=== PATIENT | female | born 1980 | race Caucasian/White ===

== ENCOUNTER 2020-11-06 11:33 | Outpatient (REF) | payer OTHER, SELFPAY ==
[2020-11-06 13:56] LABS: MANUAL DIFF FLAG NO
[2020-11-06 14:01] LABS: Basophils Absolute Auto 0.1 X10*3/uL (0.0-0.2); Basophils Percent Auto 0.5 % (0-2); Eosinophils Absolute Auto 0.2 X10*3/uL (0.0-0.4); Eosinophils Percent Auto 1.5 % (0-4); Hematocrit 42.4 % (37-47); Hemoglobin 13.8 g/dl (12.0-16.0); Imm Gran Abs Auto 0.03 X10*3/uL (0.00-0.03); Imm Gran Pct Auto 0.3 % (0.0-0.4); Lymphocytes Absolute Auto 2.8 X10*3/uL (1.2-4.9); Lymphocytes Percent Auto 28.7 % (20-40); Mean Corpuscular HGB Conc 32.5 g/dl (31.0-35.0); Mean Corpuscular Hemoglobin 29.6 pg (27.0-33.0); Mean Corpuscular Volume 90.8 fL (80-98); Mean Platelet Volume 9.6 fL (9.4-12.3); Monocytes Absolute Auto 0.7 X10*3/uL (0.1-1.2); Platelet Count 365 X10*3/uL (160-400); Red Blood Count 4.67 X10*6/uL (4.20-5.50); Red Cell Distribution Width 11.8 % (11.0-16.0); White Blood Count 9.7 X10*3/uL (4.8-10.8)
[2020-11-06 14:47] LABS: Alanine Aminotransferase 20 U/L (0-31); Albumin Level 4.9 g/dL (3.5-5.0); Alkaline Phosphatase 85 U/L (39-117); Anion Gap 15 (12-20); Aspartate Amino Transferase 15 U/L (5-31); Bilirubin Direct 0.3 mg/dL (0.0-0.5); Bilirubin Total 0.8 mg/dL (0.0-1.0); Blood Urea Nitrogen 17 mg/dL (9-16); Calcium 9.5 mg/dL (8.4-10.2); Carbon Dioxide 24 mmol/L (22-29); Chloride 105 mmol/L (96-108); Cholesterol 179 mg/dL; Estimated Glomerular Filt Rate > 60; Glucose Fasting 107 mg/dL (60-99); HDL Cholesterol 45 mg/dL; LDL Cholesterol Calculated 114 mg/dl; Potassium 4.5 mmol/l (3.3-5.1); Sodium 139 mmol/L (135-145); Total Protein 7.6 g/dL (6.5-8.0); Triglycerides 102 mg/dL
[2020-11-06 14:58] LABS: TSH reflex Free T4 2.12 mIU/mL (0.32-4.0)
== END 2020-11-06 11:34 | disposition home or self-care (01) ==
LOC: HO.HMGCLDS 11:33
PROVIDERS: PCP Internal Medicine; Visit Provider Internal Medicine
DX: G44.89 Other headache syndrome (principal); K21.9 Gastro-esophageal reflux disease without esophagitis; E78.9 Disorder of lipoprotein metabolism, unspecified
CPT/HCPCS: 36415; 80048; 80061; 80076; 84443; 85025

== ENCOUNTER 2020-12-06 14:50 | Outpatient (REF) | payer OTHER, SELFPAY ==
--- NOTE | 2020-12-06 14:52 | CT_ITS ---
EXAMINATION: CT HEAD WITHOUT CONTRAST CLINICAL INFORMATION: Tension headache. COMPARISON: None TECHNIQUE: Contiguous axial imaging was performed from the skull base to vertex without intravenous administration of contrast. This CT examination was performed using dose optimization techniques as appropriate, variously including the following: *Automated exposure control. *Adjustment of mA and/or kV according to patient size (this includes techniques or standardized protocols for targeted exams where dose is matched to indication/reason for exam; i.e. extremities or head). *Use of iterative reconstruction technique. DLP: 796 mGy-cm FINDINGS: There is no evidence of acute intracranial hemorrhage or territorial infarction. There is a focal hypodensity in subcortical white matter of right frontal lobe on axial image 21/2. There is no mass effect or midline shift seen. Gjpi-dy-gqsgj matter differentiation is well preserved. No extra-axial fluid collections are identified. The ventricles are normal in size. There is no abnormal attenuation within the brain parenchyma. The osseous structures and soft tissues are normal. The mastoid air cells and visualized portions of the paranasal sinuses are well aerated. CT/CT head/brain wo con IMPRESSION: No acute intracranial process seen. Subtle hypodensity in the subcortical white matter right frontal lobe on a couple of slices. Whether this represents a small infarct or underlying lesion is questioned. Recommend CT with contrast or MRI brain with and without contrast.
== END 2020-12-06 14:51 | disposition home or self-care (01) ==
LOC: HO.CT 14:50
PROVIDERS: PCP Internal Medicine; Visit Provider Psychiatry & Neurology Neurology
DX: G44.209 Tension-type headache, unspecified, not intractable (principal)
CPT/HCPCS: 70450

== ENCOUNTER → 2020-12-28 09:55 | Outpatient (BNVA) | payer OTHER, SELFPAY | PROVIDERS: PCP Internal Medicine; Visit Provider Internal Medicine Gastroenterology ==

== ENCOUNTER 2021-01-15 10:53 | Outpatient (REF) | payer OTHER, SELFPAY ==
[2021-01-15 12:17] LABS: Alanine Aminotransferase 16 U/L (0-31); Alkaline Phosphatase 107 U/L (39-117); Aspartate Amino Transferase 15 U/L (5-31); Bilirubin Direct 0.3 mg/dL (0.0-0.5); Bilirubin Total 0.6 mg/dL (0.0-1.0); Cholesterol 170 mg/dL; HDL Cholesterol 35 mg/dL; LDL Cholesterol Calculated 110 mg/dl; Total Protein 7.6 g/dL (6.5-8.0); Triglycerides 128 mg/dL
[2021-01-15 12:19] LABS: Blood Urea Nitrogen 8 mg/dL (9-16); Estimated Glomerular Filt Rate > 60
== END 2021-01-15 10:54 | disposition home or self-care (01) ==
LOC: HO.LAB 10:53
PROVIDERS: Absent Provider Psychiatry & Neurology Neurology; PCP Internal Medicine; Visit Provider Internal Medicine
DX: Z00.01 Encounter for general adult medical examination with abnormal findings (principal); E78.9 Disorder of lipoprotein metabolism, unspecified; G93.9 Disorder of brain, unspecified
CPT/HCPCS: 36415; 80061; 80076; 82565; 84520

== ENCOUNTER 2021-01-22 10:40 | Outpatient (REF) | payer OTHER, SELFPAY ==
--- NOTE | ~2021-01-22 | MR_ITS ---
EXAMINATION: MR BRAIN WITHOUT AND WITH CONTRAST CLINICAL INFORMATION: Assessment of right frontal lesion seen on prior CT imaging. COMPARISON: Head CT from 12/06/2020. TECHNIQUE: Multiplanar, multisequence imaging of the brain was performed before and after the intravenous administration of 8.5 mL of Gadavist. FINDINGS: No diffusion abnormalities are identified to suggest an acute or subacute infarct. The ventricles are normal in size. No mass effect or midline shift is seen. Nonspecific mild scattered white matter signal changes noted in the frontal lobes. No extra-axial fluid collections are seen. The brainstem and cerebellum are normal. On postcontrast imaging, there is no abnormal parenchymal or leptomeningeal enhancement. The gradient refocused acquisition is normal. The craniovertebral junction, marrow signal, and midline structures are normal. The major intracranial flow voids at the level of the [place] are preserved. The dural venous sinus flow voids are maintained. The paranasal sinuses are well aerated. There is a dependent right mastoid effusion. The left mastoid air cells are aerated. MR/MR head/brain wo/w con IMPRESSION: Nonspecific mild bifrontal white matter signal changes. No acute process. No abnormal enhancement. Incidental mild to moderate dependent right mastoid effusion.
== END 2021-01-22 10:41 | disposition home or self-care (01) ==
LOC: HO.MRI 10:40
PROVIDERS: Visit Provider Psychiatry & Neurology Neurology
DX: G93.9 Disorder of brain, unspecified (principal)
CPT/HCPCS: 70553; A9585

== ENCOUNTER → 2021-02-05 09:55 | Outpatient (BNVA) | payer OTHER, SELFPAY | PROVIDERS: PCP Internal Medicine; Visit Provider Internal Medicine Gastroenterology ==

== ENCOUNTER → 2021-04-02 09:45 | Outpatient (BNVA) | payer OTHER, SELFPAY | PROVIDERS: PCP Internal Medicine; Visit Provider Internal Medicine Gastroenterology ==

== ENCOUNTER → 2021-10-08 10:23 | Outpatient (BNVA) | payer OTHER, SELFPAY | PROVIDERS: PCP Internal Medicine; Referring Provider Internal Medicine; Visit Provider Internal Medicine Gastroenterology | DX: K59.01 Slow transit constipation (principal); K21.9 Gastro-esophageal reflux disease without esophagitis; R07.89 Other chest pain; R68.81 Early satiety | CPT/HCPCS: 99212 ==

== ENCOUNTER 2021-12-26 09:25 | Outpatient (REF) | payer OTHER, SELFPAY ==
[2021-12-26 12:04] LABS: Alanine Aminotransferase 29 U/L (0-31); Albumin Level 4.2 g/dL (3.5-5.0); Alkaline Phosphatase 76 U/L (39-117); Aspartate Amino Transferase 18 U/L (5-31); Bilirubin Direct < 0.2 mg/dL (0.0-0.5); Bilirubin Total 0.4 mg/dL (0.0-1.0); Cholesterol 176 mg/dL; HDL Cholesterol 38 mg/dL; LDL Cholesterol Calculated 113 mg/dl; Total Protein 6.6 g/dL (6.5-8.0); Triglycerides 126 mg/dL
== END 2021-12-26 09:26 | disposition home or self-care (01) ==
LOC: HO.HMGCLDS 09:25
PROVIDERS: PCP Internal Medicine; Visit Provider Internal Medicine
DX: E78.9 Disorder of lipoprotein metabolism, unspecified (principal)
CPT/HCPCS: 36415; 80061; 80076

== ENCOUNTER → 2022-03-28 10:10 | Outpatient (BNVA) | payer OTHER, SELFPAY | PROVIDERS: PCP Internal Medicine; Referring Provider Internal Medicine; Visit Provider Internal Medicine Gastroenterology | DX: K59.01 Slow transit constipation (principal); K21.9 Gastro-esophageal reflux disease without esophagitis; R68.81 Early satiety; R07.89 Other chest pain | CPT/HCPCS: 99212 ==

== ENCOUNTER 2022-09-02 11:46 | Outpatient (REF) | payer OTHER, SELFPAY ==
[2022-09-02 13:48] LABS: MANUAL DIFF FLAG NO
[2022-09-02 13:53] LABS: Basophils Absolute Auto 0.1 X10*3/uL (0.0-0.2); Basophils Percent Auto 1.5 % (0-2); Eosinophils Absolute Auto 0.3 X10*3/uL (0.0-0.4); Eosinophils Percent Auto 4.2 % (0-4); Hemoglobin 13.8 g/dl (12.0-16.0); Imm Gran Abs Auto 0.01 X10*3/uL (0.00-0.03); Imm Gran Pct Auto 0.1 % (0.0-0.4); Lymphocytes Absolute Auto 2.6 X10*3/uL (1.2-4.9); Lymphocytes Percent Auto 38.3 % (20-40); Mean Corpuscular HGB Conc 33.7 g/dl (31.0-35.0); Mean Corpuscular Hemoglobin 30.2 pg (27.0-33.0); Mean Corpuscular Volume 89.7 fL (80.0-98.0); Mean Platelet Volume 9.4 fL (9.4-12.3); Monocytes Absolute Auto 0.5 X10*3/uL (0.1-1.2); Neutrophils Absolute Auto 3.2 x10*3/uL (2.0-8.3); Neutrophils Percent Auto 47.9 % (45-73); Platelet Count 353 X10*3/uL (160-400); Red Blood Count 4.57 X10*6/uL (4.20-5.50); Red Cell Distribution Width 11.7 % (11.0-16.0); White Blood Count 6.7 X10*3/uL (4.8-10.8)
[2022-09-02 14:09] LABS: Alanine Aminotransferase 21 U/L (0-31); Albumin Level 4.5 g/dL (3.5-5.0); Alkaline Phosphatase 92 U/L (39-117); Anion Gap 14 (12-20); Aspartate Amino Transferase 17 U/L (5-31); Bilirubin Total 0.4 mg/dL (0.0-1.0); Blood Urea Nitrogen 12 mg/dL (9-16); Calcium 9.5 mg/dL (8.4-10.2); Carbon Dioxide 24 mmol/L (22-29); Chloride 107 mmol/L (96-108); Cholesterol 161 mg/dL; Estimated Glomerular Filt Rate > 60; Glucose Fasting 103 mg/dL (60-99); HDL Cholesterol 35 mg/dL; LDL Cholesterol Calculated 111 mg/dl; Sodium 141 mmol/L (135-145); Total Protein 6.9 g/dL (6.5-8.0); Triglycerides 75 mg/dL
[2022-09-02 14:29] LABS: TSH reflex Free T4 1.33 uIU/mL (0.32-4.0)
[2022-09-03 21:22] LABS: Follicle Stimulating Hormone 8.1 mIU/mL
[2022-09-04 23:01] LABS: TS Negative Control Passed; TS Panel A 0; TS Panel B 0; TS Positive Control Passed; TSpotTB Negative (Negative)
== END 2022-09-02 11:47 | disposition home or self-care (01) ==
LOC: HO.HMGCLDS 11:46
PROVIDERS: PCP Internal Medicine; Visit Provider Internal Medicine
DX: Z11.1 Encounter for screening for respiratory tuberculosis (principal); E78.9 Disorder of lipoprotein metabolism, unspecified; G44.89 Other headache syndrome; K21.9 Gastro-esophageal reflux disease without esophagitis; K59.01 Slow transit constipation; N93.8 Other specified abnormal uterine and vaginal bleeding; R61 Generalized hyperhidrosis
CPT/HCPCS: 36415; 80053; 80061; 83001; 83002; 84443; 85025; 86481

== ENCOUNTER 2023-03-19 12:57 | Outpatient (REF) | payer OTHER, SELFPAY ==
[2023-03-19 13:11] LABS: MANUAL DIFF FLAG NO
[2023-03-19 13:35] LABS: Basophils Absolute Auto 0.1 X10*3/uL (0.0-0.2); Basophils Percent Auto 0.7 % (0-2); Eosinophils Absolute Auto 0.1 X10*3/uL (0.0-0.4); Eosinophils Percent Auto 1.4 % (0-4); Hematocrit 39.8 % (37.0-47.0); Hemoglobin 13.2 g/dl (12.0-16.0); Imm Gran Abs Auto 0.03 X10*3/uL (0.00-0.03); Imm Gran Pct Auto 0.3 % (0.0-0.4); Lymphocytes Absolute Auto 2.9 X10*3/uL (1.2-4.9); Lymphocytes Percent Auto 29.2 % (20-40); Mean Corpuscular HGB Conc 33.2 g/dl (31.0-35.0); Mean Corpuscular Hemoglobin 30.3 pg (27.0-33.0); Mean Corpuscular Volume 91.5 fL (80.0-98.0); Mean Platelet Volume 9.2 fL (9.4-12.3); Monocytes Absolute Auto 0.7 X10*3/uL (0.1-1.2); Monocytes Percent Auto 6.6 % (2-11); Neutrophils Absolute Auto 6.1 x10*3/uL (2.0-8.3); Neutrophils Percent Auto 61.8 % (45-73); Platelet Count 379 X10*3/uL (160-400); Red Blood Count 4.35 X10*6/uL (4.20-5.50); Red Cell Distribution Width 11.9 % (11.0-16.0); White Blood Count 9.9 X10*3/uL (4.8-10.8)
[2023-03-19 13:50] LABS: Estimated Average Glucose 103 mg/dL; Hemoglobin A1c % 5.2 %
[2023-03-19 14:23] LABS: Alanine Aminotransferase 13 U/L (0-31); Albumin Level 4.4 g/dL (3.5-5.0); Alkaline Phosphatase 86 U/L (39-117); Anion Gap 11 (12-20); Aspartate Amino Transferase 14 U/L (5-31); Bilirubin Total 0.7 mg/dL (0.0-1.0); Blood Urea Nitrogen 10 mg/dL (9-16); Calcium 9.7 mg/dL (8.4-10.2); Carbon Dioxide 26 mmol/L (22-29); Chloride 107 mmol/L (96-108); Cholesterol 163 mg/dL; Estimated Glomerular Filt Rate > 60; Glucose Fasting 92 mg/dL (60-99); HDL Cholesterol 30 mg/dL; LDL Cholesterol Calculated 114 mg/dl; Potassium 4.4 mmol/L (3.3-5.1); Sodium 140 mmol/L (135-145); Total Protein 6.5 g/dL (6.5-8.0); Triglycerides 96 mg/dL
== END 2023-03-19 12:58 | disposition home or self-care (01) ==
LOC: HO.LAB 12:57
PROVIDERS: PCP Internal Medicine; Visit Provider Internal Medicine Gastroenterology
DX: E78.9 Disorder of lipoprotein metabolism, unspecified (principal); K21.9 Gastro-esophageal reflux disease without esophagitis; G44.89 Other headache syndrome; R73.01 Impaired fasting glucose
CPT/HCPCS: 36415; 80053; 80061; 83036; 85025

== ENCOUNTER → 2023-03-25 09:52 | Outpatient (BNVA) | payer OTHER, SELFPAY | PROVIDERS: PCP Internal Medicine; Visit Provider Internal Medicine Gastroenterology | DX: K21.9 Gastro-esophageal reflux disease without esophagitis (principal); K59.01 Slow transit constipation; E78.9 Disorder of lipoprotein metabolism, unspecified; R07.89 Other chest pain; R68.81 Early satiety | CPT/HCPCS: 99212 ==

== ENCOUNTER 2023-04-21 08:41 | Outpatient (REF) | payer OTHER, SELFPAY ==
[2023-04-21 11:53] LABS: Alanine Aminotransferase 17 U/L (0-31); Albumin Level 4.6 g/dL (3.5-5.0); Alkaline Phosphatase 88 U/L (39-117); Anion Gap 14 (12-20); Aspartate Amino Transferase 16 U/L (5-31); Bilirubin Total 0.6 mg/dL (0.0-1.0); Blood Urea Nitrogen 9 mg/dL (9-16); Calcium 9.9 mg/dL (8.4-10.2); Carbon Dioxide 23 mmol/L (22-29); Chloride 108 mmol/L (96-108); Cholesterol 150 mg/dL; Estimated Glomerular Filt Rate > 60; Glucose Fasting 98 mg/dL (60-99); HDL Cholesterol 33 mg/dL; LDL Cholesterol Calculated 102 mg/dl; Potassium 3.8 mmol/L (3.3-5.1); Sodium 141 mmol/L (135-145); Total Protein 7.2 g/dL (6.5-8.0); Triglycerides 78 mg/dL
== END 2023-04-21 08:42 | disposition home or self-care (01) ==
LOC: HO.HMGCLDS 08:41
PROVIDERS: PCP Internal Medicine; Visit Provider Internal Medicine
DX: K21.9 Gastro-esophageal reflux disease without esophagitis (principal); G44.89 Other headache syndrome; E78.9 Disorder of lipoprotein metabolism, unspecified
CPT/HCPCS: 36415; 80053; 80061

== ENCOUNTER 2023-09-10 12:33 | Outpatient (AMB) | payer OTHER, SELFPAY ==
[2023-09-10 12:43] VITALS: BP 126/84; PULSE 79; O2SAT 98; BMI 30.2
--- NOTE | 2023-09-10 12:43 | MHC.PC.OV ---
Vital Signs 09/10/23 12:43 Height 5 ft 3 in Weight 170 lb 4 oz BMI 30.2 BP 126/84 Blood Pressure Location Rt brachial Position Sitting Pulse 79 Pulse Source Pulse Oximeter Pulse Oximetry (%) 98 Oxygen Delivery Method Room Air Intake Visit Reasons: 5 MON FUP+ NEEDS PHQ9+ THRIVE Allergies No Known Allergies Allergy (Verified 09/10/23 12:44) Medication List - Last Reconciled 09/10/23 by Merry Mabry MD amitriptyline 25 mg PO DAILY famotidine 20 mg PO BEDTIME linaclotide (Linzess) 145 mcg PO QAM lisinopril 5 mg PO DAILY 90 days pantoprazole 40 mg PO BID 90 days propranolol 60 mg PO BID simvastatin 40 mg PO DAILY 90 days Tobacco use date assessed: 09/10/23 Dental Screening Dental Screen Date: 09/10/23 Did you have a dental visit in the last 12 months?: Yes Did you have a dental problem in the last 6 months where you did not have access to dental care?: No Was dental information given to patient?: Patient has dentist HPI 5 MON FUP+ NEEDS PHQ9+ THRIVE HPI Details Patient is a 43-year-old female came in today for her regular follow-up appointment Patient had labs in April, reviewed again new set of lab order placed to be done in October Headache syndrome:? Stable with amitriptyline 50 mg and propranolol Lipid disorder:? Continue simvastatin and diet-controlled Her BMI is 30.2 patient need to lose weight she is obese GERD is stable patient is seeing Gastroenterology patient is on pantoprazole 40 mg. Constipation is stable as well she is taking Linzess Bp stable with Lisinopril 5 mg, no side effect Taking otc melotanin as needed as sleeping aid f/u 4 M [facility] Medical History Headache syndrome Chronic GERD Lipid disorder Surgical History History of esophagogastroduodenoscopy (EGD) Hx of colonoscopy History of section Family History Father No problems noted. Mother No problems noted. Maternal Grandmother Unknown family medical history Maternal Grandfather Unknown family medical history Paternal Grandmother Unknown family medical history Son No problems noted. Social History Household Members: Spouse and Children Housing: House Alcohol intake: never Patient Tobacco Use Status: Current everyday Tobacco user e-Cigarette/Vaping Use: Never Used service: No Current occupational status: unemployed Cognitive needs: No Hearing needs: No Vision needs: No Questionnaire PHQ-9 Over the last 2 weeks, how often have you been bothered by any of the following problems? 1. Little interest or pleasure in doing things: not at all 2. Feeling down, depressed, or hopeless: not at all 3. Trouble falling or staying asleep, or sleeping too much: not at all 4. Feeling tired or having little energy: not at all 5. Poor appetite or overeating: not at all 6. Feeling bad about yourself - or that you are a failure or have let yourself or your family down: not at all 7. Trouble concentrating on things, such as reading the newspaper or watching television: not at all 8. Moving or speaking so slowly that other people could have noticed. Or the opposite - being so fidgety or restless that you have been moving around a lot more than usual: not at all 9. Thoughts that you would be better off or of hurting yourself in some way: not at all Total score: 0 Depression Screening Interpretation: Negative Depression Screening Done: Yes 16987 - PHQ-9 Billing: Yes Source: Developed by Drs. Nii Morales, Chanel Bowens, Lasha Good and colleagues, with an educational tucker from [employer]. Thrive Questionnaire Date Thrive assessed: 08/27/22 SEBLE-7 AMB Questionnaire SEBLE-7 Date SEBLE - 7 assessed: 08/27/22 Source: Developed by Drs. Nii Morales, Chanel Bowens, Lasha Good and colleagues, with an educational tucker from [employer]. Review of Systems Const Denies chills and Denies fever(s) ENT Denies epistaxis and Denies nasal discharge Card Denies chest pain Resp Denies chest congestion, Denies cough and Denies hemoptysis GI Denies diarrhea and Denies nausea Skin/Breast Denies rash Neuro Reports no additional complaints Psych Reports no additional complaints Endo Reports no additional complaints Physical exam (Primary Care) Vital Signs: Last Vital Signs Pulse 79 09/10/23 12:43 BP 126/84 09/10/23 12:43 Pulse Ox 98 09/10/23 12:43 Oxygen Delivery Method Room Air 09/10/23 12:43 BMI result Body Mass Index 30.2 Tobacco/Smoking Status: Tobacco use Status Tobacco use date assessed 09/10/23 09/10/23 12:46 Patient Tobacco Use Status Current everyday Tobacco 09/10/23 12:46 e-Cigarette/Vaping Use Never Used 09/10/23 12:46 Depression Screening Interpretation: Negative Thrive Assessment: Date of Thrive Assessment Date Thrive assessed 08/27/22 09/10/23 12:46 Const General: cooperative, comfortable and no acute distress Orientation/consciousness: patient oriented x3 HENMT Head: Yes normocephalic Eyes General: appearance normal, both eyes and all related structures Neck Neck: Yes supple Resp Effort & Inspection: normal respiratory effort, no cough and no stridor Cardio Rhythm: regular rhythm Heart sounds: S1 normal heart sound present and S2 normal heart sound present Skin General skin exam: turgor normal Neuro General: patient oriented x3, tone normal and moves all extremities Extrem Right lower extremity: no edema Left lower extremity: no edema Assessment and Plan Assessment & Plan (1) Lipid disorder: Code(s): E78.9 - Disorder of lipoprotein metabolism, unspecified (2) Chronic GERD: Code(s): K21.9 - Gastro-esophageal reflux disease without esophagitis (3) Headache syndrome: Code(s): G44.89 - Other headache syndrome (4) Hypertension, essential: Code(s): I10 - Essential (primary) hypertension (5) Impaired fasting blood sugar: Code(s): R73.01 - Impaired fasting glucose (6) Difficulty sleeping: Code(s): G47.9 - Sleep disorder, unspecified (7) Obesity due to excess calories: Code(s): E66.09 - Other obesity due to excess calories Qualifiers: Obesity classification: adult class 1 (BMI 30 - 34.9) Serious obesity comorbidity presence: with serious comorbidity Body mass index: BMI 30.0-30.9 Qualified Code(s): E66.09 - Other obesity due to excess calories; Z68.30 - Body mass index [BMI] 30.0-30.9, adult Plan: If your BMI is between 25 and 29.9, you are overweight. If your BMI is 30 or greater, you are obese. ___ Being obese is a problem, because it increases the risks of many different health problems. It can also make it hard for you to move, breathe, and do other things that people who are at a healthy weight can do easily. Plus, being obese can be hard emotionally. ___ What are the health risks of being obese? Being obese increases a persons risk of developing many health problems. Here are just a few examples: __ Diabetes High blood pressure, High cholesterol, Heart disease (including heart attacks) Stroke, Sleep apnea (a disorder in which you stop breathing for short periods while asleep) Asthma, Cancer __ Does being obese shorten a persons life? Yes. Studies show that people who are obese younger than people who are a healthy weight. They also show that the risk of goes up the heavier a person is. The degree of increased risk depends on how long the person has been obese, and on what other medical problems he or she has. , Reduce your carbohydrate intake and choose carbs that are complex. Remember as a general rule of thumb, avoid highly processed foods. If it's white and soft, it's probably been stripped of its nutritional value. Change white bread to whole wheat bread, white rice to brown rice, white potatoes to sweet potatoes, white pasta to whole wheat pasta. Monitor portion sizes too: protein should be no bigger than your fist. Limit your red meat intake to only once or twice a wk. Eat more white meat but make sure to avoid creamy sauces etc. Broiling, baking or grilling is best. Increase dark, green leafy vegetables and fruits. Plan Patient is a 43-year-old female came in today for her regular follow-up appointment Patient had labs in April, reviewed again new set of lab order placed to be done in October Headache syndrome:? Stable with amitriptyline 50 mg and propranolol Lipid disorder:? Continue simvastatin and diet-controlled Her BMI is 30.2 patient need to lose weight she is obese GERD is stable patient is seeing Gastroenterology patient is on pantoprazole 40 mg. Constipation is stable as well she is taking Linzess Bp stable with Lisinopril 5 mg, no side effect Taking otc melotanin as needed as sleeping aid f/u 4 M Orders: Orders Complete Blood Count Auto Diff Today E78.9 - Disorder of lipoprotein metabolism, unspecified, G44.89 - Other headache syndrome, G47.9 - Sleep disorder, unspecified, I10 - Essential (primary) hypertension, K21.9 - Gastro-esophageal reflux disease without esophagitis, R73.01 - Impaired fasting glucose Comprehensive Met. Panel Today E78.9 - Disorder of lipoprotein metabolism, unspecified, G44.89 - Other headache syndrome, G47.9 - Sleep disorder, unspecified, I10 - Essential (primary) hypertension, K21.9 - Gastro-esophageal reflux disease without esophagitis, R73.01 - Impaired fasting glucose Hemoglobin A1c Today R73.01 - Impaired fasting glucose Medications: New amitriptyline 25 mg PO DAILY 90 tabs 0RF Changed From propranolol 60 mg PO BID To propranolol 60 mg PO BID 90 days 180 tabs 0RF Refilled lisinopril 5 mg PO DAILY 90 days 90 tabs 1RF simvastatin 40 mg PO DAILY 90 days 90 tabs 1RF E78.9 - Disorder of lipoprotein metabolism, unspecified Coding Level of Care Code Est Pt Level 4 (76306) Diagnoses Lipid disorder E78.9 Chronic GERD K21.9 Headache syndrome G44.89 Hypertension, essential I10 Impaired fasting blood sugar R73.01 Difficulty sleeping G47.9 Class 1 obesity due to excess calories with serious comorbidity and body mass index (BMI) of 30.0 to 30.9 in adult E66.09; Z68.30 Obesity classification: adult class 1 (BMI 30 - 34.9) Serious obesity comorbidity presence: with serious comorbidity Body mass index: BMI 30.0-30.9
== END 2023-09-10 13:46 | disposition home or self-care (01) ==
PROVIDERS: PCP Internal Medicine; Visit Provider Internal Medicine
DX: E78.9 Disorder of lipoprotein metabolism, unspecified (principal); K21.9 Gastro-esophageal reflux disease without esophagitis; G44.89 Other headache syndrome; I10 Essential (primary) hypertension; R73.01 Impaired fasting glucose; G47.9 Sleep disorder, unspecified; E66.09 Other obesity due to excess calories; Z68.30 Body mass index [BMI] 30.0-30.9, adult
CPT/HCPCS: 99214

== ENCOUNTER 2023-10-30 11:38 | Outpatient (AMB) | payer OTHER, SELFPAY ==
[2023-10-30 11:45] VITALS: BP 118/69; PULSE 87; BMI 29.2
--- NOTE | 2023-10-30 11:45 | MHC.OFFVIS ---
Intake Vital Signs 10/30/23 11:45 Height 5 ft 3 in Weight 165 lb BMI 29.2 BP 118/69 Blood Pressure Location Lt brachial Position Sitting Pulse 87 Intake Visit Reasons: 4 month follow up Intake Note: Patient 4 month follow up for constipation and chronic GERD. Patient denies any GI issues. 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 CHRONIC ILLNESSES: Gerd, headache sydrome, VERTIGO, DYSPEPSIA, OVER WEIGHT, LOW VITAMIN B12 LEVEL, LIPID DISORDER ? LABS IN [facility]: 01/07/19 normal CBC, Chem panel and LFTs ?IMAGING STUDIES:?07/2014 barium swallow was performed for evaluation of chest pain and was normal. ?ENDOSCOPIC STUDIES; 08/28 EGD SHOWED: ? LARYNX: Changes suggestive of LPRD ? ESOPHAGUS: Normal ? STOMACH: Gastritis. ? DUODENUM: Normal ? Plan: ? Await pathology results ? Continue present medications (Omeprazole at 20 mg PO once daily) ? Patient has an appointment on 09/15/19 in the GI Clinic with Yony Talley M.D ? BIOPSIES SHOWED: ? A. Small bowel, biopsies: Small bowel mucosa with no significant ? histopathology; no villous abnormality identified; no increase in ? intraepithelial lymphocytes. ? B. Stomach, biopsies: Mild chronic, inactive gastritis; no Helicobacter pylori organisms seen. ? C. Esophagus proximal, biopsy: Squamous epithelium within normal limits. ? TODAY'S VISIT Patient 4 month follow up for constipation and chronic GERD. Patient denies any GI issues. Intentional weight loss of 35 lb over the past 3 years. Pt states she is feeling better. Occasional heartburn once in a while - not related to specific foods - once every 1-2 months Contiptipation is better and has a BM every day or 2nd day PAST VISIT: Pt is accompanied by her 5 year old daughter, Annette Denies chest pains, just burning sensation Most of the time this week - mostly at night. Taking Pantoprazole 40 mg twice a day Takes Linzess 145 mcg and has a BM daily to every 2nd day. Denies change in her diet. GERD and chest pains well controlled with medications. Has a BM daily to every other day. Notes intermittent episodes of chest pain - not often - can last 30 min to 1 hr. Constipation is much better , she is using the bathroom more frequently and GERD symptoms are better, too . Can have intermittent hard stools Having a BM every day with good evacuation. Denies any other GI symptoms. She is planning to go to [place] to spend the holidays with her in-laws. Patient called on #[phone]) Chest pains have improved since she started using medications. Intermittent chest pain radiating to the back - this week was bad. Constipation is a little bit better. Having a BM every 2 days - still has hard stools with straining ? Doing OK - Had some heartburn and not too bad. ? Complains of intermittent shortness of breath ? Feels full in the morning even before she has eaten - feels she has air inside. ? Noted some shortness of breath - attributes to weight gain for 25 lbs over the past 3 months. ? Taking Pantoprazole once daily. ? Has constipation for 6-7 months and was prescribed some medications - does not appear to be working. ? ? ? She was having a BM once a week ? Now every 2-3 days with passage of hard stools with . ? Can have heartburn symptoms every 2-3 weeks. ? Quitted smoking 3 months ago. ? Can can feel full in the stomach even if she had not eaten anything. ? Continues to have symptoms of heartburn though less than in the past. ? Takes Pantoprazole every morning and can have breakthrough symptoms three times a week. ? Can have chest pain sometimes. ? Takes longer to go to sleep due to heartburn. ? Keeps HOB elevated at night with pillows. ? Has dinner at 7 pm and goes to bed after 10 or 10;30 pm. ? Continues to have a Fb sensation in the throat.. ? Symptoms occur during the day and mostly at night. ? Unable to identify any precipitating foods. ? Has 3 cups of coffee daily ? Smokes 6-7 cigg/day x 19 yrs and is trying to cut down. Quitted on her own for a few months and then resumed smoking again. ? Denies regurgitation or dysphagia or chronic cough or hoarseness. ? Also has pain in the lower chest radiationg up to the throat and back. ? Chest pain is not as frequent as the heartburn and is not related to food or activity. ? Notes palpitations and denies nausea, vomiting, sweating or shortness of breath PFSH Medical History Headache syndrome Chronic GERD Lipid disorder Surgical History History of esophagogastroduodenoscopy (EGD) Hx of colonoscopy History of section Family History Father No problems noted. Mother No problems noted. Maternal Grandmother Unknown family medical history Maternal Grandfather Unknown family medical history Paternal Grandmother Unknown family medical history Son No problems noted. Social History Household Members: Spouse and Children Housing: House Alcohol intake: never Patient Tobacco Use Status: Current everyday Tobacco user e-Cigarette/Vaping Use: Never Used service: No Current occupational status: unemployed Cognitive needs: No Hearing needs: No Vision needs: No Review of Systems Const All systems reviewed & are unremarkable except as noted in HPI and below Physical Exam Vital Signs: Last Vital Signs Pulse 87 10/30/23 11:45 BP 118/69 10/30/23 11:45 BMI result Body Mass Index 29.2 Const General: healthy appearing and no acute distress Nutritional Appearance: overweight Orientation/consciousness: patient oriented x3 Limitations: no limitations HEENT Head: Yes normal to inspection Ears: hearing grossly normal bilaterally Eyes Sclerae: sclerae normal Pupils: Equal, round and reactive pupils present Neck Neck: Yes normal visual inspection Chest Chest palpation & inspection: normal inspection of the chest Resp Effort & Inspection: normal respiratory effort Auscultation: clear to auscultation bilaterally Cardio Palpation: normal PMI Rate: regular rate Rhythm: regular rhythm Heart sounds: S1 normal heart sound present, S2 normal heart sound present and no murmurs GI Palpation (GI): Soft to palpation, nontender and No hepatosplenomegaly present Auscultation: normal bowel sounds Rectal Exam - Female: deferred Skin General skin exam: no rashes or lesions noted Neuro General: patient oriented x3, gait normal and moves all extremities Cranial nerves: Yes Equal, round and reactive pupils present Psych Appearance: grossly normal Mental Status: mental status grossly normal Assessment & Plan Assessment & Plan (1) Early satiety: Code(s): R68.81 - Early satiety (2) Chest pain, atypical: Code(s): R07.89 - Other chest pain (3) Constipation by delayed colonic transit: Code(s): K59.01 - Slow transit constipation (4) Chronic GERD: Code(s): K21.9 - Gastro-esophageal reflux disease without esophagitis Plan 43 year-old female with headache syndrome, vertigo, dyspepsia, overweight, low vitamin B12 level, lipid disorder with symptoms of heartburn and atypical chest likely associated with esophageal spasm. FB sensation in the throat likely related to LPRD. Patient quit smoking 2 yrs ago and has noted significant improvement of her symptoms with pantoprazole with intermittent breakthrough symptoms once every 2-3 weeks. Patient has gained 25 lb over the past 9 months since she is house bound due to COVID-19 pandemic.? She was able to loose some weight and has regained again She notes symptoms of abdominal fullness with and without eating which she attributes to weight gain. Pt was advised to increase pantoprazole to 40 mg twice daily for GERD during her previous visit and notes partial improvement in symptoms. Pt was started on Linzess for constipation and notes improvement in symptoms and has a BM daily with intermittent hard stools Patient was offered further evaluation with gastric emptying study. She would like to work on losing weight and she will contact my office if symptoms persist to schedule a gastric emptying test. 03/25/23 Pt complains of persisting burning - worse at night. She was advised to keep head of her bed elevated at night and take famotidine 20 mg at bedtime. She will be scheduled for an upper endoscopy with Torres (Off PPI) If symptoms resolve, she may elect to cancel the EGD. 10/30/23 Intentional weight loss of 35 lb over the past 3 years. Pt states she is feeling better. Occasional heartburn once in a while - not related to specific foods - once every 1-2 months Contiptipation is better and has a BM every day or 2nd day Follow-up appointment in 6 months Medications: Refilled pantoprazole 40 mg PO BID 90 days 180 tabs 2RF Discontinued famotidine Discontinued Reason: Patient Completed Course 20 mg PO BEDTIME 90 tabs 1RF K21.9 - Gastro-esophageal reflux disease without esophagitis Coding Level of Care Code Est Pt Level 3 (31367) Diagnoses Early satiety R68.81 Chest pain, atypical R07.89 Constipation by delayed colonic transit K59.01 Chronic GERD K21.9 Time Spent (min) 15
== END 2023-10-30 12:04 | disposition home or self-care (01) ==
LOC: HO.HGI 11:38
PROVIDERS: PCP Internal Medicine; Visit Provider Internal Medicine Gastroenterology
DX: R68.81 Early satiety (principal); R07.89 Other chest pain; K59.01 Slow transit constipation; K21.9 Gastro-esophageal reflux disease without esophagitis
CPT/HCPCS: 99213

== ENCOUNTER → 2023-10-30 11:38 | Outpatient (BNVA) | payer OTHER, SELFPAY | PROVIDERS: PCP Internal Medicine; Visit Provider Internal Medicine Gastroenterology | DX: K21.9 Gastro-esophageal reflux disease without esophagitis (principal); K59.01 Slow transit constipation; R68.81 Early satiety; R07.89 Other chest pain | CPT/HCPCS: 99212 ==

== ENCOUNTER 2023-12-03 09:51 | Outpatient (REF) | payer OTHER, SELFPAY ==
[2023-12-03 13:44] LABS: MANUAL DIFF FLAG NO
[2023-12-03 14:03] LABS: Basophils Absolute Auto 0.1 X10*3/uL (0.0-0.2); Basophils Percent Auto 0.9 % (0-2); Eosinophils Absolute Auto 0.3 X10*3/uL (0.0-0.4); Eosinophils Percent Auto 3.6 % (0-4); Hematocrit 41.1 % (37.0-47.0); Hemoglobin 13.8 g/dl (12.0-16.0); Imm Gran Abs Auto 0.01 X10*3/uL (0.00-0.03); Imm Gran Pct Auto 0.1 % (0.0-0.4); Lymphocytes Absolute Auto 3.2 X10*3/uL (1.2-4.9); Lymphocytes Percent Auto 41.2 % (20-40); Mean Corpuscular HGB Conc 33.6 g/dl (31.0-35.0); Mean Corpuscular Hemoglobin 30.3 pg (27.0-33.0); Mean Corpuscular Volume 90.3 fL (80.0-98.0); Mean Platelet Volume 9.1 fL (9.4-12.3); Monocytes Absolute Auto 0.6 X10*3/uL (0.1-1.2); Monocytes Percent Auto 7.9 % (2-11); Neutrophils Absolute Auto 3.7 x10*3/uL (2.0-8.3); Neutrophils Percent Auto 46.3 % (45-73); Platelet Count 387 X10*3/uL (160-400); Red Blood Count 4.55 X10*6/uL (4.20-5.50); Red Cell Distribution Width 11.7 % (11.0-16.0); White Blood Count 7.9 X10*3/uL (4.8-10.8)
[2023-12-03 14:05] LABS: Estimated Average Glucose 97 mg/dL
[2023-12-03 14:25] LABS: Alanine Aminotransferase 15 U/L (0-31); Albumin Level 4.5 g/dL (3.5-5.0); Alkaline Phosphatase 75 U/L (39-117); Anion Gap 13 (12-20); Aspartate Amino Transferase 16 U/L (5-31); Bilirubin Total 0.6 mg/dL (0.0-1.0); Blood Urea Nitrogen 10 mg/dL (9-16); Calcium 9.6 mg/dL (8.4-10.2); Carbon Dioxide 23 mmol/L (22-29); Chloride 106 mmol/L (96-108); Estimated Glomerular Filt Rate > 60; Glucose Random 104 mg/dL (60-115); Potassium 3.5 mmol/L (3.3-5.1); Sodium 138 mmol/L (135-145); Total Protein 7.3 g/dL (6.5-8.0)
== END 2023-12-03 09:52 | disposition home or self-care (01) ==
LOC: HO.HMGCLDS 09:51
PROVIDERS: PCP Internal Medicine; Visit Provider Internal Medicine
DX: E78.9 Disorder of lipoprotein metabolism, unspecified (principal); K21.9 Gastro-esophageal reflux disease without esophagitis; G44.89 Other headache syndrome; R73.01 Impaired fasting glucose; G47.9 Sleep disorder, unspecified; I10 Essential (primary) hypertension
CPT/HCPCS: 36415; 80053; 83036; 85025

== ENCOUNTER 2023-12-12 12:31 | Outpatient (AMB) | payer OTHER, SELFPAY ==
[2023-12-12 12:33] VITALS: BP 126/78; PULSE 81; O2SAT 98; BMI 30.9
--- NOTE | 2023-12-12 12:33 | MHC.PC.OV ---
Vital Signs 12/12/23 12:33 Height 5 ft 3 in Weight 174 lb 6 oz BMI 30.9 BP 126/78 Blood Pressure Location Lt brachial Position Sitting Pulse 81 Pulse Source Pulse Oximeter Pulse Oximetry (%) 98 Oxygen Delivery Method Room Air Intake Visit Reasons: 3 Month follow up Allergies No Known Allergies Allergy (Verified 12/12/23 12:33) Medication List - Last Reconciled 12/12/23 by Merry Mabry MD linaclotide (Linzess) 145 mcg PO QAM lisinopril 5 mg PO DAILY 90 days pantoprazole 40 mg PO BID 90 days propranolol 60 mg PO BID 90 days simvastatin 40 mg PO DAILY 90 days Tobacco use date assessed: 12/12/23 Dental Screening Dental Screen Date: 12/12/23 Did you have a dental visit in the last 12 months?: Yes Did you have a dental problem in the last 6 months where you did not have access to dental care?: No Was dental information given to patient?: Patient has dentist HPI 3 Month follow up HPI Details Patient is a 43-year-old female came in today for her regular follow-up appointment Labs done recently reviewed with the patient Headache syndrome:? Stable propranolol, she is no longer taking amitriptyline Lipid disorder:? Continue simvastatin and diet-controlled Her BMI is 30.9 patient need to lose weight GERD is stable patient is seeing Gastroenterology patient is on pantoprazole 40 mg. Constipation is stable as well she is taking Linzess Bp stable with Lisinopril 5 mg, no side effect Taking otc melotanin as needed as sleeping aid f/u 4 M PFS Medical History Headache syndrome Chronic GERD Lipid disorder Surgical History History of esophagogastroduodenoscopy (EGD) Hx of colonoscopy History of section Family History Father No problems noted. Mother No problems noted. Maternal Grandmother Unknown family medical history Maternal Grandfather Unknown family medical history Paternal Grandmother Unknown family medical history Son No problems noted. Social History Household Members: Spouse and Children Housing: House Alcohol intake: never Patient Tobacco Use Status: Current everyday Tobacco user e-Cigarette/Vaping Use: Never Used service: No Current occupational status: unemployed Cognitive needs: No Hearing needs: No Vision needs: No Questionnaire Thrive Questionnaire Date Thrive assessed: 08/27/22 SEBLE-7 AMB Questionnaire SEBLE-7 Date SEBLE - 7 assessed: 08/27/22 Source: Developed by Drs. Nii Morales, Chanel Bowens, Lasha Good and colleagues, with an educational tucker from [employer]. Review of Systems Const Denies chills and Denies fever(s) ENT Denies epistaxis and Denies nasal discharge Card Denies chest pain Resp Denies chest congestion, Denies cough and Denies hemoptysis GI Denies diarrhea and Denies nausea Skin/Breast Denies rash Neuro Reports no additional complaints Psych Reports no additional complaints Endo Reports no additional complaints Physical exam (Primary Care) Vital Signs: Last Vital Signs Pulse 81 12/12/23 12:33 BP 126/78 12/12/23 12:33 Pulse Ox 98 12/12/23 12:33 Oxygen Delivery Method Room Air 12/12/23 12:33 BMI result Body Mass Index 30.9 Tobacco/Smoking Status: Tobacco use Status Tobacco use date assessed 12/12/23 12/12/23 12:35 Patient Tobacco Use Status Current everyday Tobacco 12/12/23 12:35 e-Cigarette/Vaping Use Never Used 12/12/23 12:35 Thrive Assessment: Date of Thrive Assessment Date Thrive assessed 08/27/22 12/12/23 12:35 Const General: cooperative, comfortable and no acute distress Orientation/consciousness: patient oriented x3 HENMT Head: Yes normocephalic Eyes General: appearance normal, both eyes and all related structures Neck Neck: Yes supple Resp Effort & Inspection: normal respiratory effort, no cough and no stridor Cardio Rhythm: regular rhythm Heart sounds: S1 normal heart sound present and S2 normal heart sound present Skin General skin exam: turgor normal Neuro General: patient oriented x3, tone normal and moves all extremities Extrem Right lower extremity: no edema Left lower extremity: no edema Assessment and Plan Assessment & Plan (1) Hypertension, essential: Code(s): I10 - Essential (primary) hypertension (2) Lipid disorder: Code(s): E78.9 - Disorder of lipoprotein metabolism, unspecified (3) Chronic GERD: Code(s): K21.9 - Gastro-esophageal reflux disease without esophagitis (4) Headache syndrome: Code(s): G44.89 - Other headache syndrome (5) Impaired fasting blood sugar: Code(s): R73.01 - Impaired fasting glucose (6) Obesity due to excess calories: Code(s): E66.09 - Other obesity due to excess calories Qualifiers: Body mass index: BMI 30.0-30.9 Obesity classification: adult class 1 (BMI 30 - 34.9) Serious obesity comorbidity presence: with serious comorbidity Qualified Code(s): E66.09 - Other obesity due to excess calories; Z68.30 - Body mass index [BMI] 30.0-30.9, adult Plan Patient is a 43-year-old female came in today for her regular follow-up appointment Labs done recently reviewed with the patient Headache syndrome:? Stable propranolol, she is no longer taking amitriptyline Lipid disorder:? Continue simvastatin and diet-controlled Her BMI is 30.9 patient need to lose weight GERD is stable patient is seeing Gastroenterology patient is on pantoprazole 40 mg. Constipation is stable as well she is taking Linzess Bp stable with Lisinopril 5 mg, no side effect Taking otc melotanin as needed as sleeping aid f/u 4 M Medications: Discontinued amitriptyline Discontinued Reason: Doctor's Order 25 mg PO DAILY 90 tabs 0RF Coding Level of Care Code Est Pt Level 4 (92782) Diagnoses Hypertension, essential I10 Lipid disorder E78.9 Chronic GERD K21.9 Headache syndrome G44.89 Impaired fasting blood sugar R73.01 Class 1 obesity due to excess calories with serious comorbidity and body mass index (BMI) of 30.0 to 30.9 in adult E66.09; Z68.30 Body mass index: BMI 30.0-30.9 Obesity classification: adult class 1 (BMI 30 - 34.9) Serious obesity comorbidity presence: with serious comorbidity
== END 2023-12-12 16:17 | disposition home or self-care (01) ==
PROVIDERS: PCP Internal Medicine; Visit Provider Internal Medicine
DX: I10 Essential (primary) hypertension (principal); E78.9 Disorder of lipoprotein metabolism, unspecified; K21.9 Gastro-esophageal reflux disease without esophagitis; G44.89 Other headache syndrome; R73.01 Impaired fasting glucose; E66.09 Other obesity due to excess calories; Z68.30 Body mass index [BMI] 30.0-30.9, adult
CPT/HCPCS: 99214

== ENCOUNTER 2024-04-09 11:16 | Outpatient (AMB) | payer OTHER, SELFPAY ==
[2024-04-09 11:20] VITALS: BP 126/88; PULSE 83; O2SAT 98; BMI 30.9
--- NOTE | 2024-04-09 11:20 | A.OFFPC_ITS ---
Vital Signs 04/09/24 11:20 Height 5 ft 3 in Weight 174 lb 4 oz BMI 30.9 BP 126/88 Blood Pressure Location Rt brachial Position Sitting Pulse 83 Pulse Source Pulse Oximeter Pulse Oximetry (%) 98 Oxygen Delivery Method Room Air Intake Visit Reasons: Annual PE- NEEDS PHQ9/THRIVE Allergies No Known Allergies Allergy (Verified 04/09/24 11:23) Medication List - Last Reconciled 04/09/24 by Merry Mabry MD linaclotide (Linzess) 145 mcg PO QAM lisinopril 5 mg PO DAILY 90 days pantoprazole 40 mg PO BID 90 days propranolol 60 mg PO BID 90 days simvastatin 40 mg PO DAILY 90 days Tobacco use date assessed: 04/09/24 Dental Screening Dental Screen Date: 04/09/24 Did you have a dental visit in the last 12 months?: Yes Did you have a dental problem in the last 6 months where you did not have access to dental care?: No Was dental information given to patient?: Patient has dentist HPI Annual PE- NEEDS PHQ9/THRIVE HPI Details Patient is a 43-year-old female came in today for physical examination Patient has lipid disorder and hypertension She is taking simvastatin 40 mg lisinopril 5 mg, tolerating medication Blood pressure is well-controlled Patient is seeing [facility] Breast exam mammogram and Pap smear through them Lab order placed to be done today Patient is complaining of feeling itchy at night which does not happen every night but 3 or 4 times a month Patient says that she does not know what happens but she is not able to sleep I have sent hydroxyzine 25 mg to be taken as needed only. BMI is elevated need to lose weight Follow-up 6 months physical exam 1 year [facility] Medical History Headache syndrome Chronic GERD Lipid disorder Surgical History History of esophagogastroduodenoscopy (EGD) Hx of colonoscopy History of section Family History Father No problems noted. Mother No problems noted. Maternal Grandmother Unknown family medical history Maternal Grandfather Unknown family medical history Paternal Grandmother Unknown family medical history Son No problems noted. Social History Household Members: Spouse and Children Housing: House Alcohol intake: never Patient Tobacco Use Status: Current everyday Tobacco user e-Cigarette/Vaping Use: Never Used service: No Current occupational status: unemployed Cognitive needs: No Hearing needs: No Vision needs: No Questionnaire PHQ-9 Over the last 2 weeks, how often have you been bothered by any of the following problems? 1. Little interest or pleasure in doing things: not at all 2. Feeling down, depressed, or hopeless: not at all 3. Trouble falling or staying asleep, or sleeping too much: not at all 4. Feeling tired or having little energy: not at all 5. Poor appetite or overeating: not at all 6. Feeling bad about yourself - or that you are a failure or have let yourself or your family down: not at all 7. Trouble concentrating on things, such as reading the newspaper or watching television: not at all 8. Moving or speaking so slowly that other people could have noticed. Or the opposite - being so fidgety or restless that you have been moving around a lot more than usual: not at all 9. Thoughts that you would be better off or of hurting yourself in some way: not at all Total score: 0 Depression Screening Interpretation: Negative Depression Screening Done: Yes 63847 - PHQ-9 Billing: Yes Source: Developed by Drs. Nii Morales, Chanel Bowens, Lasha Good and colleagues, with an educational tucker from [employer]. Thrive Questionnaire Date Thrive assessed: 04/09/24 I am a: Patient What is your living situation today?: I have a steady place to live Within the past 12 months, did the food you bought not last and you didn't have the money to get more?: Never true Within the past 12 months, did you worry whether your food would run out before you got money to buy more?: Never true Do you have trouble paying for medicines?: No Do you have trouble getting transportation to medical appointments?: No Do you have trouble paying your heating and electricity bill?: No Do you have trouble taking care of your child, family member or friend?: No Do you have trouble with day-to-day activities such as bathing, preparing meals, shopping, managing finances, etc.?: No Are you currently unemployed and looking for a job?: Yes Are you interested in more education?: No Please select the resources that you would like help with: None Currently or been in a relationship where the following occur: no concerns reported THRIVE Score: 0 AUDIT C Alcohol Use Questionnaire (AUDIT-C) 1. How often do you have a drink containing alcohol?: Never 3. How often do you have six or more drinks on one occasion?: Never Total Score: 0 Score Reviewed/Action Taken: Yes SEBLE-7 AMB Questionnaire SEBLE-7 Date SEBLE - 7 assessed: 04/09/24 Feeling nervous, anxious, or on edge: 0 = Not at all Not being able to stop or control worryin = Not at all Worrying too much about different things: 0 = Not at all Trouble relaxin = Not at all Being so restless that it is hard to sit still: 0 = Not at all Becoming easily annoyed or irritable: 0 = Not at all Feeling afraid as if something awful might happen: 0 = Not at all Total SEBLE-7 score (0-4 normal; 5-9 mild; 10-14 moderate; 15-21 severe): 0 Source: Developed by Drs. Nii Morales, Chanel Bowens, Lasha Good and colleagues, with an educational tucker from [employer]. SEBLE-7 Assessment Billing SEBLE-7 Assessment Tool: SEBLE-7 Assessment 49291 Review of Systems Const Denies chills, Denies fever(s) and Denies headache(s) Eyes Denies blurry vision ENT Denies headache(s), Denies nasal discharge, Denies nasal obstruction, Denies odynophagia and Denies sinus pain Card Denies chest pain at rest and Denies chest pain with activity Resp Denies cough and Denies hemoptysis GI Denies diarrhea, Denies odynophagia, Denies vomiting and Denies hematemesis Reports as per HPI Musc Denies abnormal gait Skin/Breast Reports as per HPI Neuro Denies Neuro-related abnormal movements, Denies Abnormal speech present, Denies abnormal gait, Denies headache(s) and Denies Sensory deficit (Neuro) Psych Denies mood swings and Denies paranoia Endo Reports as per HPI Daren/Lymph Reports as per HPI Aller/Immun Reports as per HPI Physical exam (Primary Care) Vital Signs: Last Vital Signs Pulse 83 04/09/24 11:20 BP 126/88 04/09/24 11:20 Pulse Ox 98 04/09/24 11:20 Oxygen Delivery Method Room Air 04/09/24 11:20 BMI result Body Mass Index 30.9 Tobacco/Smoking Status: Tobacco use Status Tobacco use date assessed 04/09/24 04/09/24 11:23 Patient Tobacco Use Status Current everyday Tobacco 04/09/24 11:23 e-Cigarette/Vaping Use Never Used 04/09/24 11:23 Depression Screening Interpretation: Negative Thrive Assessment: Date of Thrive Assessment Date Thrive assessed 08/27/22 04/09/24 11:23 Currently or been in a relationship where the following occur: no concerns reported Const General: cooperative, comfortable and no acute distress Orientation/consciousness: patient oriented x3 HENMT Head: Yes normocephalic and Yes atraumatic Eyes General: appearance normal, both eyes and all related structures Pupils: Equal, round and reactive pupils present EOM: EOMs intact bilaterally Neck Neck: Yes supple and No lymphadenopathy Thyroid: Thyroid normal Lymphatic: no lymphadenopathy noted Resp Effort & Inspection: normal respiratory effort and able to speak in complete sentences Auscultation: clear to auscultation bilaterally Cardio Heart sounds: S1 normal heart sound present and S2 normal heart sound present GI Palpation (GI): Soft to palpation and nontender Auscultation: normal bowel sounds General: Yes no CVA tenderness Back/Spine/Pelvis Back: no CVA tenderness Skin General skin exam: elasticity normal and turgor normal Neuro General: patient oriented x3 and gait normal Cranial nerves: Yes Equal, round and reactive pupils present Speech: No Abnormal speech present Sensory Exam: No Sensory deficit (Neuro) Coordination: tandem gait normal and Romberg test negative Extrem General: Yes normal exam except as noted and No edema Assessment and Plan Assessment & Plan (1) Encounter for general adult medical examination with abnormal findings: Code(s): Z00.01 - Encounter for general adult medical examination with abnormal findings (2) Pruritus: Code(s): L29.9 - Pruritus, unspecified (3) Lipid disorder: Code(s): E78.9 - Disorder of lipoprotein metabolism, unspecified (4) Chronic GERD: Code(s): K21.9 - Gastro-esophageal reflux disease without esophagitis (5) Headache syndrome: Code(s): G44.89 - Other headache syndrome (6) Obesity due to excess calories: Code(s): E66.09 - Other obesity due to excess calories Qualifiers: Body mass index: BMI 30.0-30.9 Obesity classification: adult class 1 (BMI 30 - 34.9) Serious obesity comorbidity presence: with serious comorbidity Qualified Code(s): E66.09 - Other obesity due to excess calories; Z68.30 - Body mass index [BMI] 30.0-30.9, adult (7) Impaired fasting blood sugar: Code(s): R73.01 - Impaired fasting glucose (8) Hypertension, essential: Code(s): I10 - Essential (primary) hypertension Plan Patient is a 43-year-old female came in today for physical examination , with a history of migraine headaches, impaired fasting sugar, GERD Patient has lipid disorder and hypertension She is taking simvastatin 40 mg lisinopril 5 mg, tolerating medication Blood pressure is well-controlled Patient is seeing [facility] Breast exam mammogram and Pap smear through them Lab order placed to be done today Patient is complaining of feeling itchy at night which does not happen every night but 3 or 4 times a month Patient says that she does not know what happens but she is not able to sleep I have sent hydroxyzine 25 mg to be taken as needed only. BMI is elevated need to lose weight Follow-up 6 months physical exam 1 year Orders: Orders Comprehensive Met. Panel Today E66.09 - Other obesity due to excess calories, E78.9 - Disorder of lipoprotein metabolism, unspecified, G44.89 - Other headache syndrome, I10 - Essential (primary) hypertension, K21.9 - Gastro-esophageal reflux disease without esophagitis, K59.01 - Slow transit constipation, R73.01 - Impaired fasting glucose, Z00.01 - Encounter for general adult medical examination with abnormal findings, Z68.30 - Body mass index [BMI] 30.0-30.9, adult Complete Blood Count Auto Diff Today E66.09 - Other obesity due to excess calories, E78.9 - Disorder of lipoprotein metabolism, unspecified, G44.89 - Other headache syndrome, I10 - Essential (primary) hypertension, K21.9 - Gastro- esophageal reflux disease without esophagitis, K59.01 - Slow transit constipation, R73.01 - Impaired fasting glucose, Z00.01 - Encounter for general adult medical examination with abnormal findings, Z68.30 - Body mass index [BMI] 30.0-30.9, adult Medications: New hydroxyzine HCl 25 mg PO BEDTIME 90 days PRN 90 tabs 0RF itching Refilled lisinopril 5 mg PO DAILY 90 days 90 tabs 1RF simvastatin 40 mg PO DAILY 90 days 90 tabs 1RF E78.9 - Disorder of lipoprotein metabolism, unspecified Coding Level of Care Code Est Pt Level 3 (84406) Est Pt Prev Care 40-64y(35366) Diagnoses Encounter for general adult medical examination with abnormal findings Z00.01 Pruritus L29.9 Lipid disorder E78.9 Chronic GERD K21.9 Headache syndrome G44.89 Class 1 obesity due to excess calories with serious comorbidity and body mass index (BMI) of 30.0 to 30.9 in adult E66.09; Z68.30 Body mass index: BMI 30.0-30.9 Obesity classification: adult class 1 (BMI 30 - 34.9) Serious obesity comorbidity presence: with serious comorbidity Impaired fasting blood sugar R73.01 Hypertension, essential I10 Additional Codes SEBLE-7 Assessment Billing - SEBLE-7 Assessment Tool: SEBLE-7 Assessment 13039 ([id number])
== END 2024-04-09 11:48 | disposition home or self-care (01) ==
PROVIDERS: PCP Internal Medicine; Visit Provider Internal Medicine
DX: Z00.01 Encounter for general adult medical examination with abnormal findings (principal); L29.9 Pruritus, unspecified; E78.9 Disorder of lipoprotein metabolism, unspecified; K21.9 Gastro-esophageal reflux disease without esophagitis; G44.89 Other headache syndrome; E66.09 Other obesity due to excess calories; Z68.30 Body mass index [BMI] 30.0-30.9, adult; R73.01 Impaired fasting glucose; I10 Essential (primary) hypertension
CPT/HCPCS: 99213; 99396

== ENCOUNTER 2024-04-09 11:49 | Outpatient (REF) | payer OTHER, SELFPAY ==
[2024-04-09 13:28] LABS: MANUAL DIFF FLAG NO
[2024-04-09 13:53] LABS: Basophils Absolute Auto 0.1 X10*3/uL (0.0-0.2); Basophils Percent Auto 0.9 % (0-2); Eosinophils Absolute Auto 0.2 X10*3/uL (0.0-0.4); Hematocrit 42.8 % (37.0-47.0); Hemoglobin 14.3 g/dl (12.0-16.0); Imm Gran Abs Auto 0.04 X10*3/uL (0.00-0.03); Imm Gran Pct Auto 0.3 % (0.0-0.4); Lymphocytes Absolute Auto 3.3 X10*3/uL (1.2-4.9); Lymphocytes Percent Auto 27.9 % (20-40); Mean Corpuscular HGB Conc 33.4 g/dl (31.0-35.0); Mean Corpuscular Hemoglobin 30.4 pg (27.0-33.0); Mean Corpuscular Volume 90.9 fL (80.0-98.0); Mean Platelet Volume 9.5 fL (9.4-12.3); Monocytes Absolute Auto 0.7 X10*3/uL (0.1-1.2); Monocytes Percent Auto 6.2 % (2-11); Neutrophils Absolute Auto 7.4 x10*3/uL (2.0-8.3); Neutrophils Percent Auto 62.7 % (45-73); Platelet Count 433 X10*3/uL (160-400); Red Blood Count 4.71 X10*6/uL (4.20-5.50); Red Cell Distribution Width 12.1 % (11.0-16.0); White Blood Count 11.7 X10*3/uL (4.8-10.8)
[2024-04-09 14:05] LABS: Alanine Aminotransferase 18 U/L (0-31); Albumin Level 4.8 g/dL (3.5-5.0); Alkaline Phosphatase 81 U/L (39-117); Anion Gap 13 (12-20); Aspartate Amino Transferase 19 U/L (5-31); Bilirubin Total 0.5 mg/dL (0.0-1.0); Blood Urea Nitrogen 10 mg/dL (9-16); Calcium 10.3 mg/dL (8.4-10.2); Carbon Dioxide 25 mmol/L (22-29); Chloride 105 mmol/L (96-108); Estimated Glomerular Filt Rate > 60; Glucose Random 110 mg/dL (60-115); Potassium 4.2 mmol/L (3.3-5.1); Sodium 139 mmol/L (135-145)
== END 2024-04-09 11:50 | disposition home or self-care (01) ==
LOC: HO.HMGCLDS 11:49
PROVIDERS: PCP Internal Medicine; Visit Provider Internal Medicine
DX: Z00.01 Encounter for general adult medical examination with abnormal findings (principal); K21.9 Gastro-esophageal reflux disease without esophagitis; E78.9 Disorder of lipoprotein metabolism, unspecified; G44.89 Other headache syndrome; K59.01 Slow transit constipation; E66.09 Other obesity due to excess calories; Z68.30 Body mass index [BMI] 30.0-30.9, adult; R73.01 Impaired fasting glucose; I10 Essential (primary) hypertension
CPT/HCPCS: 36415; 80053; 85025

== ENCOUNTER 2024-04-22 10:24 | Outpatient (AMB) | payer OTHER, SELFPAY ==
--- NOTE | 2024-04-22 10:38 | A.OFFVIS_ITS ---
Vital Signs 04/22/24 10:39 Height 5 ft 3 in Weight 172 lb BMI 30.5 BP 98/66 Blood Pressure Location Lt brachial Position Sitting Pulse 71 Intake Visit Reasons: 6 month f/u GERD, Constipation Intake Note: Patient follow up for GERD and Constipation. Patient denies any GI issues. Emergency Room Specialist Required: No Accompanied by: Self / Same As Patient Allergies No Known Allergies Allergy (Verified 04/22/24 10:38) Medication List - Last Reconciled 04/22/24 by Yony Talley MD hydroxyzine HCl 25 mg PO BEDTIME PRN 90 days linaclotide (Linzess) 145 mcg PO QAM lisinopril 5 mg PO DAILY 90 days pantoprazole 40 mg PO BID 90 days propranolol 60 mg PO BID 90 days simvastatin 40 mg PO DAILY 90 days HPI HPI 6 month f/u GERD, Constipation: Details: GI CLINIC?VISIT FOR THIS 43-YEAR-OLD FEMALE FOR FU OF GERD AND CONSTIPATION. CHRONIC ILLNESSES: Gerd, headache syndrome, VERTIGO, DYSPEPSIA, OVER WEIGHT, LOW VITAMIN B12 LEVEL, LIPID DISORDER ? LABS IN [facility]: 01/07/19 normal CBC, Chem panel and LFTs ?IMAGING STUDIES:?07/2014 barium swallow was performed for evaluation of chest pain and was normal. ?ENDOSCOPIC STUDIES; 08/28 EGD SHOWED: ? LARYNX: Changes suggestive of LPRD ? ESOPHAGUS: Normal ? STOMACH: Gastritis. ? DUODENUM: Normal ? Plan: ? Await pathology results ? Continue present medications (Omeprazole at 20 mg PO once daily) ? Patient has an appointment on 09/15/19 in the GI Clinic with Yony Talley M.D ? BIOPSIES SHOWED: ? A. Small bowel, biopsies: Small bowel mucosa with no significant ? histopathology; no villous abnormality identified; no increase in ? intraepithelial lymphocytes. ? B. Stomach, biopsies: Mild chronic, inactive gastritis; no Helicobacter pylori organisms seen. ? C. Esophagus proximal, biopsy: Squamous epithelium within normal limits. ? TODAY'S VISIT Patient follow up for GERD and Constipation. Patient denies any GI issues. Weighed 156 lbs 1-2 months. Gained wt since she eats more during the summer time GERD symptoms are controlled with medication - takes Pantoprazole once a day. Takes a 2nd dose prn if she has symptoms < once a week. Having BM and does not need to use the pills Intentional weight loss of 35 lb over the past 3 years. Pt states she is feeling better. Occasional heartburn once in a while - not related to specific foods - once every 1-2 months Constipation is better and has a BM every day or 2nd day PAST VISIT: Pt is accompanied by her 5 year old daughter, Annette Denies chest pains, just burning sensation Most of the time this week - mostly at night. Taking Pantoprazole 40 mg twice a day Takes Linzess 145 mcg and has a BM daily to every 2nd day. Denies change in her diet. GERD and chest pains well controlled with medications. Has a BM daily to every other day. Notes intermittent episodes of chest pain - not often - can last 30 min to 1 hr. Constipation is much better , she is using the bathroom more frequently and GERD symptoms are better, too . Can have intermittent hard stools Having a BM every day with good evacuation. Denies any other GI symptoms. She is planning to go to [place] to spend the holidays with her in-laws. Patient called on #[phone]) Chest pains have improved since she started using medications. Intermittent chest pain radiating to the back - this week was bad. Constipation is a little bit better. Having a BM every 2 days - still has hard stools with straining ? Doing OK - Had some heartburn and not too bad. ? Complains of intermittent shortness of breath ? Feels full in the morning even before she has eaten - feels she has air inside. ? Noted some shortness of breath - attributes to weight gain for 25 lbs over the past 3 months. ? Taking Pantoprazole once daily. ? Has constipation for 6-7 months and was prescribed some medications - does not appear to be working. ? ? ? She was having a BM once a week ? Now every 2-3 days with passage of hard stools with . ? Can have heartburn symptoms every 2-3 weeks. ? Quitted smoking 3 months ago. ? Can can feel full in the stomach even if she had not eaten anything. ? Continues to have symptoms of heartburn though less than in the past. ? Takes Pantoprazole every morning and can have breakthrough symptoms three times a week. ? Can have chest pain sometimes. ? Takes longer to go to sleep due to heartburn. ? Keeps HOB elevated at night with pillows. ? Has dinner at 7 pm and goes to bed after 10 or 10;30 pm. ? Continues to have a Fb sensation in the throat.. ? Symptoms occur during the day and mostly at night. ? Unable to identify any precipitating foods. ? Has 3 cups of coffee daily ? Smokes 6-7 cigg/day x 19 yrs and is trying to cut down. Quitted on her own for a few months and then resumed smoking again. ? Denies regurgitation or dysphagia or chronic cough or hoarseness. ? Also has pain in the lower chest radiationg up to the throat and back. ? Chest pain is not as frequent as the heartburn and is not related to food or activity. ? Notes palpitations and denies nausea, vomiting, sweating or shortness of breath PFSH Medical History Headache syndrome Chronic GERD Lipid disorder Surgical History History of esophagogastroduodenoscopy (EGD) Hx of colonoscopy History of section Family History Father No problems noted. Mother No problems noted. Maternal Grandmother Unknown family medical history Maternal Grandfather Unknown family medical history Paternal Grandmother Unknown family medical history Son No problems noted. Social History Household Members: Spouse and Children Housing: House Alcohol intake: never Patient Tobacco Use Status: Current everyday Tobacco user e-Cigarette/Vaping Use: Never Used service: No Current occupational status: unemployed Cognitive needs: No Hearing needs: No Vision needs: No Review of Systems Const All systems reviewed & are unremarkable except as noted in HPI and below Physical Exam Vital Signs: Last Vital Signs Pulse 71 04/22/24 10:39 BP 98/66 04/22/24 10:39 BMI result Body Mass Index 30.5 Const General: healthy appearing and no acute distress Nutritional Appearance: overweight Orientation/consciousness: patient oriented x3 Limitations: no limitations HEENT Head: Yes normal to inspection Ears: hearing grossly normal bilaterally Eyes Sclerae: sclerae normal Pupils: Equal, round and reactive pupils present Neck Neck: Yes normal visual inspection Chest Chest palpation & inspection: normal inspection of the chest Resp Effort & Inspection: normal respiratory effort Auscultation: clear to auscultation bilaterally Cardio Palpation: normal PMI Rate: regular rate Rhythm: regular rhythm Heart sounds: S1 normal heart sound present, S2 normal heart sound present and no murmurs GI Palpation (GI): Soft to palpation, nontender and No hepatosplenomegaly present Auscultation: normal bowel sounds Rectal Exam - Female: deferred Skin General skin exam: no rashes or lesions noted Neuro General: patient oriented x3, gait normal and moves all extremities Cranial nerves: Yes Equal, round and reactive pupils present Psych Appearance: grossly normal Mental Status: mental status grossly normal Assessment & Plan Assessment & Plan (1) Chronic GERD: Code(s): K21.9 - Gastro-esophageal reflux disease without esophagitis Category: Medical (2) Constipation by delayed colonic transit: Code(s): K59.01 - Slow transit constipation Category: Medical (3) Early satiety: Code(s): R68.81 - Early satiety Category: Medical Plan 43 year-old female with headache syndrome, vertigo, dyspepsia, overweight, low vitamin B12 level, lipid disorder with symptoms of heartburn and atypical chest likely associated with esophageal spasm. FB sensation in the throat likely related to LPRD. Patient quit smoking 2 yrs ago and has noted significant improvement of her symptoms with pantoprazole with intermittent breakthrough symptoms once every 2- 3 weeks. Patient has gained 25 lb over the past 9 months since she is house bound due to COVID-19 pandemic.? She was able to loose some weight and has regained again She notes symptoms of abdominal fullness with and without eating which she attributes to weight gain. Pt was advised to increase pantoprazole to 40 mg twice daily for GERD during her previous visit and notes partial improvement in symptoms. Pt was started on Linzess for constipation and notes improvement in symptoms and has a BM daily with intermittent hard stools Patient was offered further evaluation with gastric emptying study. She would like to work on losing weight and she will contact my office if symptoms persist to schedule a gastric emptying test. 03/25/23 Pt complains of persisting burning - worse at night. She was advised to keep head of her bed elevated at night and take famotidine 20 mg at bedtime. She will be scheduled for an upper endoscopy with Torres (Off PPI) If symptoms resolve, she may elect to cancel the EGD. 10/30/23 Intentional weight loss of 35 lb over the past 3 years. Pt states she is feeling better. Occasional heartburn once in a while - not related to specific foods - once every 1-2 months Constipation is better and has a BM every day or 2nd day 04/22/24 GERD symptoms are controlled with medication - takes Pantoprazole once a day. Takes a 2nd dose prn if she has symptoms < once a week. Having BM and does not need to use the pills Follow-up appointment in 6 months Coding Level of Care Code Est Pt Level 3 (21295) Diagnoses Chronic GERD K21.9 Constipation by delayed colonic transit K59.01 Early satiety R68.81 Time Spent (min) 16
[2024-04-22 10:39] VITALS: BP 98/66; PULSE 71; BMI 30.5
== END 2024-04-22 11:12 | disposition home or self-care (01) ==
PROVIDERS: PCP Internal Medicine; Visit Provider Internal Medicine Gastroenterology
DX: K21.9 Gastro-esophageal reflux disease without esophagitis (principal); K59.01 Slow transit constipation; R68.81 Early satiety
CPT/HCPCS: 99213

== ENCOUNTER → 2024-04-22 10:24 | Outpatient (BNVA) | payer OTHER, SELFPAY | PROVIDERS: PCP Internal Medicine; Visit Provider Internal Medicine Gastroenterology | DX: K21.9 Gastro-esophageal reflux disease without esophagitis (principal); K59.01 Slow transit constipation; R68.81 Early satiety | CPT/HCPCS: 99212 ==

== ENCOUNTER 2024-09-28 10:49 | Outpatient (AMB) | payer OTHER, SELFPAY ==
[2024-09-28 10:55] VITALS: BP 128/72; PULSE 108; O2SAT 97; BMI 32.7
--- NOTE | 2024-09-28 10:55 | A.OFFPC_ITS ---
Vital Signs 09/28/24 10:55 Height 5 ft 3 in Weight 184 lb 8 oz BMI 32.7 BP 128/72 Blood Pressure Location Lt brachial Position Sitting Pulse 108 H Pulse Source Pulse Oximeter Pulse Oximetry (%) 97 Oxygen Delivery Method Room Air Intake Visit Reasons: Fri f/ Allergies No Known Allergies Allergy (Verified 09/28/24 10:55) Medication List - Last Reconciled 09/28/24 by Merry Mabry MD hydroxyzine HCl 25 mg PO BEDTIME PRN 90 days linaclotide (Linzess) 145 mcg PO QAM lisinopril 5 mg PO DAILY 90 days pantoprazole 40 mg PO BID 90 days propranolol 60 mg PO BID 90 days simvastatin 40 mg PO DAILY 90 days Tobacco use date assessed: 09/28/24 Dental Screening Dental Screen Date: 09/28/24 Did you have a dental visit in the last 12 months?: Yes Did you have a dental problem in the last 6 months where you did not have access to dental care?: No Was dental information given to patient?: Patient has dentist HPI Fri f/ HPI Details The patient is a 44-year-old female presenting with concerns related to her weight management and chronic conditions. She reports an increase in weight from 165 pounds in October 2023 to 184 pounds currently. The patient acknowledges overeating as a contributing factor. There is a discussion about seeking dietary counseling, though she expresses a familiarity with dietary measures. In addition, the patient has been experiencing some challenges with her anxiety management and intermittently uses hydroxyzine, although she is uncertain of the full therapeutic effects on her symptoms. There is a history of mild hypertension, which is managed with medication lisinopril 5 mg dosage, although she adjusts or omits doses based on perceived low blood pressure. Hypercholesterolemia is monitored and managed with ongoing medication. No significant acute symptoms of depression reported, though occasional symptoms have been noted. The patient has a prior history of constipation, but discontinued Dr. Talley?s prescribed medication for it. Headaches are stable with propranolol She continued to use pantoprazole for GERD symptoms only as needed PFSH Medical History Headache syndrome Chronic GERD Lipid disorder Surgical History History of esophagogastroduodenoscopy (EGD) Hx of colonoscopy History of section Family History Father No problems noted. Mother No problems noted. Maternal Grandmother Unknown family medical history Maternal Grandfather Unknown family medical history Paternal Grandmother Unknown family medical history Son No problems noted. Social History Household Members: Spouse and Children Housing: House Alcohol intake: never Patient Tobacco Use Status: Current everyday Tobacco user e-Cigarette/Vaping Use: Never Used service: No Current occupational status: unemployed Cognitive needs: No Hearing needs: No Vision needs: No Questionnaire Thrive Questionnaire Date Thrive assessed: 04/09/24 AUDIT C Alcohol Use Questionnaire (AUDIT-C) 1. How often do you have a drink containing alcohol?: Never 3. How often do you have six or more drinks on one occasion?: Never Total Score: 0 Score Reviewed/Action Taken: Yes SEBLE-7 AMB Questionnaire SEBLE-7 Date SEBLE - 7 assessed: 04/09/24 Source: Developed by Drs. Nii Morales, Chanel Bowens, Lasha Good and colleagues, with an educational tucker from [employer]. Review of Systems Const Denies chills and Denies fever(s) ENT Denies epistaxis and Denies nasal discharge Card Denies chest pain Resp Denies chest congestion, Denies cough and Denies hemoptysis GI Denies diarrhea and Denies nausea Skin/Breast Denies rash Neuro Reports no additional complaints Psych Reports no additional complaints Endo Reports no additional complaints Physical exam (Primary Care) Vital Signs: Last Vital Signs Pulse 108 H 09/28/24 10:55 BP 128/72 09/28/24 10:55 Pulse Ox 97 09/28/24 10:55 Oxygen Delivery Method Room Air 09/28/24 10:55 BMI result Body Mass Index 32.7 Tobacco/Smoking Status: Tobacco use Status Tobacco use date assessed 09/28/24 09/28/24 10:59 Patient Tobacco Use Status Current everyday Tobacco 09/28/24 10:59 e-Cigarette/Vaping Use Never Used 09/28/24 10:59 Thrive Assessment: Date of Thrive Assessment Date Thrive assessed 04/09/24 09/28/24 10:59 Const General: cooperative, comfortable and no acute distress Orientation/consciousness: patient oriented x3 HENMT Head: Yes normocephalic Eyes General: appearance normal, both eyes and all related structures Neck Neck: Yes supple Resp Effort & Inspection: normal respiratory effort, no cough and no stridor Cardio Rhythm: regular rhythm Heart sounds: S1 normal heart sound present and S2 normal heart sound present Skin General skin exam: turgor normal Neuro General: patient oriented x3, tone normal and moves all extremities Extrem Right lower extremity: no edema Left lower extremity: no edema Coding Level of Care Code Est Pt Level 4 (47279) Diagnoses Lipid disorder E78.9 Chronic GERD K21.9 Headache syndrome G44.89 Class 1 obesity due to excess calories with serious comorbidity and body mass index (BMI) of 30.0 to 30.9 in adult E66.09; Z68.30 Body mass index: BMI 30.0-30.9 Obesity classification: adult class 1 (BMI 30 - 34.9) Serious obesity comorbidity presence: with serious comorbidity Impaired fasting blood sugar R73.01 Pruritus L29.9 Assessment & Plan Assessment & Plan (1) Lipid disorder: Code(s): E78.9 - Disorder of lipoprotein metabolism, unspecified Category: Medical (2) Chronic GERD: Code(s): K21.9 - Gastro-esophageal reflux disease without esophagitis Category: Medical (3) Headache syndrome: Code(s): G44.89 - Other headache syndrome Category: Medical (4) Obesity due to excess calories: Code(s): E66.09 - Other obesity due to excess calories Category: Medical Qualifiers: Body mass index: BMI 30.0-30.9 Obesity classification: adult class 1 (BMI 30 - 34.9) Serious obesity comorbidity presence: with serious comorbidity Qualified Code(s): E66.09 - Other obesity due to excess calories; Z68.30 - Body mass index [BMI] 30.0-30.9, adult (5) Impaired fasting blood sugar: Code(s): R73.01 - Impaired fasting glucose Category: Medical (6) Pruritus: Code(s): L29.9 - Pruritus, unspecified Category: Medical Plan The patient is a 44-year-old female presenting with concerns related to her weight management and chronic conditions. She reports an increase in weight from 165 pounds in October 2023 to 184 pounds currently. The patient acknowledges overeating as a contributing factor. There is a discussion about seeking dietary counseling, though she expresses a familiarity with dietary measures. In addition, the patient has been experiencing some challenges with her anxiety management which present with itching all over her body and intermittently uses hydroxyzine, although she is uncertain of the full therapeutic effects on her symptoms. There is a history of mild hypertension, which is managed with medication lisinopril 5 mg dosage, although she adjusts or omits doses based on perceived low blood pressure. Hypercholesterolemia is monitored and managed with ongoing medication. No significant acute symptoms of depression reported, though occasional symptoms have been noted. The patient has a prior history of constipation, but discontinued Dr. Talley?s prescribed medication for it. Headaches are stable with propranolol She continued to use pantoprazole for GERD symptoms only as needed Orders: Orders LDL Cholesterol Direct Today E66.09 - Other obesity due to excess calories, E78.9 - Disorder of lipoprotein metabolism, unspecified, G44.89 - Other headache syndrome, K21.9 - Gastro-esophageal reflux disease without esophagitis, Z68.30 - Body mass index [BMI] 30.0-30.9, adult Complete Blood Count Auto Diff Today E66.09 - Other obesity due to excess calories, E78.9 - Disorder of lipoprotein metabolism, unspecified, G44.89 - Other headache syndrome, K21.9 - Gastro-esophageal reflux disease without esophagitis, Z68.30 - Body mass index [BMI] 30.0-30.9, adult Comprehensive Met. Panel Today E66.09 - Other obesity due to excess calories, E78.9 - Disorder of lipoprotein metabolism, unspecified, G44.89 - Other headache syndrome, K21.9 - Gastro-esophageal reflux disease without esophagitis, Z68.30 - Body mass index [BMI] 30.0-30.9, adult Medications: Discontinued linaclotide (Linzess) Discontinued Reason: Doctor's Order 145 mcg PO QAM 90 caps 1RF K59.01 - Slow transit constipation On Hold lisinopril Hold Comment: Doctor's Order 5 mg PO DAILY 90 days 90 tabs 1RF
== END 2024-09-28 13:50 | disposition home or self-care (01) ==
PROVIDERS: PCP Internal Medicine; Visit Provider Internal Medicine
DX: E78.9 Disorder of lipoprotein metabolism, unspecified (principal); K21.9 Gastro-esophageal reflux disease without esophagitis; G44.89 Other headache syndrome; E66.09 Other obesity due to excess calories; Z68.30 Body mass index [BMI] 30.0-30.9, adult; R73.01 Impaired fasting glucose; L29.9 Pruritus, unspecified

== ENCOUNTER 2024-09-28 10:49 | Outpatient (REF) | payer OTHER, SELFPAY ==
[2024-09-28 13:22] LABS: MANUAL DIFF FLAG NO
[2024-09-28 13:54] LABS: Basophils Absolute Auto 0.1 X10*3/uL (0.0-0.2); Basophils Percent Auto 0.8 % (0-2); Eosinophils Absolute Auto 0.2 X10*3/uL (0.0-0.4); Eosinophils Percent Auto 1.4 % (0-4); Hematocrit 43.2 % (37.0-47.0); Hemoglobin 14.3 g/dl (12.0-16.0); Imm Gran Abs Auto 0.03 X10*3/uL (0.00-0.03); Imm Gran Pct Auto 0.3 % (0.0-0.4); Lymphocytes Absolute Auto 2.5 X10*3/uL (1.2-4.9); Lymphocytes Percent Auto 22.4 % (20-40); Mean Corpuscular HGB Conc 33.1 g/dl (31.0-35.0); Mean Corpuscular Hemoglobin 30.5 pg (27.0-33.0); Mean Corpuscular Volume 92.1 fL (80.0-98.0); Mean Platelet Volume 9.3 fL (9.4-12.3); Monocytes Absolute Auto 0.9 X10*3/uL (0.1-1.2); Monocytes Percent Auto 7.9 % (2-11); Neutrophils Absolute Auto 7.4 x10*3/uL (2.0-8.3); Neutrophils Percent Auto 67.2 % (45-73); Platelet Count 397 X10*3/uL (160-400); Red Blood Count 4.69 X10*6/uL (4.20-5.50); Red Cell Distribution Width 12.4 % (11.0-16.0)
[2024-09-28 14:16] LABS: Alanine Aminotransferase 29 U/L (0-31); Albumin Level 4.7 g/dL (3.5-5.0); Alkaline Phosphatase 77 U/L (39-117); Anion Gap 10 (12-20); Aspartate Amino Transferase 24 U/L (5-31); Bilirubin Total 0.5 mg/dL (0.0-1.0); Blood Urea Nitrogen 9 mg/dL (9-16); Calcium 10.2 mg/dL (8.4-10.2); Carbon Dioxide 25 mmol/L (22-29); Chloride 109 mmol/L (96-108); Estimated Glomerular Filt Rate > 60; Glucose Random 99 mg/dL (60-115); Potassium 3.7 mmol/L (3.3-5.1); Sodium 140 mmol/L (135-145); Total Protein 7.6 g/dL (6.5-8.0)
[2024-09-29 14:08] LABS: LDL Cholesterol Direct 134 mg/dL (<100)
== END 2024-09-28 10:50 | disposition home or self-care (01) ==
LOC: HO.HMGCLDS 10:49
PROVIDERS: PCP Internal Medicine; Visit Provider Internal Medicine
DX: E78.9 Disorder of lipoprotein metabolism, unspecified (principal); K21.9 Gastro-esophageal reflux disease without esophagitis; G44.89 Other headache syndrome; E66.09 Other obesity due to excess calories; Z68.30 Body mass index [BMI] 30.0-30.9, adult; R73.01 Impaired fasting glucose; L29.9 Pruritus, unspecified; Z79.899 Other long term (current) drug therapy
CPT/HCPCS: 36415; 80053; 83721; 85025; 99212

== ENCOUNTER 2025-04-29 09:56 | Outpatient (AMB) | payer OTHER, SELFPAY ==
--- NOTE | 2025-04-29 10:04 | A.OFFPC_ITS ---
Vital Signs 04/29/25 10:07 Height 5 ft 3 in Weight 183 lb BMI 32.4 BP 110/68 Blood Pressure Location Rt brachial Position Sitting Respiration 15 Pulse 70 Pulse Source Pulse Oximeter Temp 98.0 F Temp Source Oral Pulse Oximetry (%) 97 Oxygen Delivery Method Room Air Intake Visit Reasons: Annual PE- NEEDS PHQ9/THRIVE Allergies No Known Allergies Allergy (Verified 04/29/25 10:04) Medication List - Last Reconciled 04/29/25 by Merry Mabry MD hydroxyzine HCl 25 mg PO BEDTIME PRN 90 days lisinopril 5 mg PO DAILY 90 days Held on 09/28/24. Instructions: Doctor's Order pantoprazole 40 mg PO BID 90 days propranolol 60 mg PO BID 90 days simvastatin 40 mg PO DAILY 90 days Tobacco use date assessed: 04/29/25 Dental Screening Dental Screen Date: 04/29/25 Did you have a dental visit in the last 12 months?: Yes Did you have a dental problem in the last 6 months where you did not have access to dental care?: No Was dental information given to patient?: Patient has dentist HPI Annual PE- NEEDS PHQ9/THRIVE HPI Details PE apt - The patient is a 44-year-old female pr esenting with a routine physical examination. - Osteoarthritis: The patient has osteoa rthritis with noticeable crepitus in the knees, indicating joint degeneration. - Prediabetes: The patient has a history of impaired fasting glucose, indicating prediabetes. - Pruritus: The patient experiences gene ralized itching, occasionally requiring hydroxyzine PRN for relief. The itching is persistent and bothersome, with no clear trigger identified. decline to see derm - Preventative care: The patient underwe nt a mammogram and Pap smear last year as part of routine screening. Health Maintenance - Routine blood tests ordered, including fasting glucose to monitor prediabetes - Encouraged to maintain a food diary to identify potential triggers for pruritus - Breast exam and [place] [facility] Medications - Simvastatin 40 mg for hyperlipidemia - Propranolol 60 mg for headache managem ent - Pantoprazole twice daily for gastroeso phageal reflux disease - Hydroxyzine as needed for pruritus Employment - The patient is currently unemployed. Patient Instructions - Continue taking medications as prescri bed. - Use hydroxyzine only as needed for itc jose carlos. - Schedule follow-up in six months for r outine check-up and lab results. - Maintain a food diary to help identify any potential triggers for itching. - steroid cream sent for pruritic rash o n chest , use it at night for a week then take one week break Review of Systems - General: No fever no chills - Neurological: No headaches no dizzin ess - Ear nose throat: No sore throat no hearing difficulty no ear pain - Cardiovascular: No syncope, no chest pain, no palpitations - Gastrointestinal: No nausea vomiting or diarrhea - Endocrine: No polyuria polydipsia no heat intolerance - Genitourinary: No dysuria Physical Exam General: Cooperative, healthy appearing, comfortable, no acute distress Orientation: Patient oriented x3 Limitations: none Head: Normal to inspection Ears: Within normal limit visually Nose: Normal external nose present Face and sinus: Normal facial exam Eyes: Appearance normal, extraocular movement intact pupils reactive Neck: Normal visual inspection and supple Respiratory: Normal respiratory effort and able to speak in complete sentences. Clear to auscultation, no stridor Cardiovascular: S1 and S2 RRR Breast exam thru Obgyn GI: Normal to inspection. Soft to palpation and nontender Skin: Turgor normal, no acute findings, but patient reports itching all over the body, especially in one area on chest Neuro: Patient oriented x3, motor sensory intact, balance intact, tandem pass Extremities: Normal to inspection, but some osteoarthritis noted in the knees with clicking sounds PFSH Medical History Headache syndrome Chronic GERD Lipid disorder Surgical History History of esophagogastroduodenoscopy (EGD) Hx of colonoscopy History of section Family History Father No problems noted. Mother No problems noted. Maternal Grandmother Unknown family medical history Maternal Grandfather Unknown family medical history Paternal Grandmother Unknown family medical history Son No problems noted. Social History Household Members: Spouse and Children Housing: House Alcohol intake: never Patient Tobacco Use Status: Current everyday Tobacco user e-Cigarette/Vaping Use: Never Used service: No Current occupational status: unemployed Cognitive needs: No Hearing needs: No Vision needs: No Questionnaire PHQ-9 Over the last 2 weeks, how often have you been bothered by any of the following problems? 1. Little interest or pleasure in doing things: not at all 2. Feeling down, depressed, or hopeless: not at all 3. Trouble falling or staying asleep, or sleeping too much: not at all 4. Feeling tired or having little energy: not at all 5. Poor appetite or overeating: not at all 6. Feeling bad about yourself - or that you are a failure or have let yourself or your family down: not at all 7. Trouble concentrating on things, such as reading the newspaper or watching television: not at all 8. Moving or speaking so slowly that other people could have noticed. Or the opposite - being so fidgety or restless that you have been moving around a lot more than usual: not at all 9. Thoughts that you would be better off or of hurting yourself in some way: not at all Total score: 0 Depression Screening Interpretation: Negative Depression Screening Done: Yes 59606 - PHQ-9 Billing: Yes Source: Developed by Drs. Nii Morales, Chanel Bowens, Lasha Good and colleagues, with an educational tucker from [employer]. Thrive Questionnaire Date Thrive assessed: 04/29/25 I am a: Patient What is your living situation today?: I have a steady place to live Within the past 12 months, did the food you bought not last and you didn't have the money to get more?: Never true Within the past 12 months, did you worry whether your food would run out before you got money to buy more?: Never true Do you have trouble paying for medicines?: No Do you have trouble getting transportation to medical appointments?: No Do you have trouble paying your heating and electricity bill?: No Do you have trouble taking care of your child, family member or friend?: No Do you have trouble with day-to-day activities such as bathing, preparing meals, shopping, managing finances, etc.?: No Are you currently unemployed and looking for a job?: No Are you interested in more education?: No THRIVE Score: 0 SEBLE-7 AMB Questionnaire SEBLE-7 Date SEBLE - 7 assessed: 04/09/24 Source: Developed by Drs. Nii Morales, Chanel Bowens, Lasha Good and colleagues, with an educational tucker from [employer]. Physical exam (Primary Care) Vital Signs: Last Vital Signs Temp 98.0 F 04/29/25 10:07 Pulse 70 04/29/25 10:07 Resp 15 04/29/25 10:07 BP 110/68 04/29/25 10:07 Pulse Ox 97 04/29/25 10:07 Oxygen Delivery Method Room Air 04/29/25 10:07 BMI result Body Mass Index 32.4 Tobacco/Smoking Status: Tobacco use Status Tobacco use date assessed 04/29/25 04/29/25 10:11 Patient Tobacco Use Status Current everyday Tobacco 04/29/25 10:11 e-Cigarette/Vaping Use Never Used 04/29/25 10:11 PHQ-9: PHQ-9 Score PHQ-9: Total score 0 04/29/25 10:11 Depression Screening Interpretation: Negative Thrive Assessment: Date of Thrive Assessment Date Thrive assessed 04/29/25 04/29/25 10:11 Coding Level of Care Code Est Pt Level 3 (66425) Est Pt Prev Care 40-64y(98980) Diagnoses Encounter for general adult medical examination with abnormal findings Z00.01 Chronic pruritic rash in adult L29.89 Headache syndrome G44.89 Chronic GERD K21.9 Impaired fasting blood sugar R73.01 Class 1 obesity due to excess calories with serious comorbidity and body mass index (BMI) of 30.0 to 30.9 in adult E66.09; Z68.30 Body mass index: BMI 30.0-30.9 Obesity classification: adult class 1 (BMI 30 - 34.9) Serious obesity comorbidity presence: with serious comorbidity Lipid disorder E78.9 Hypertension, essential I10 Additional Codes PHQ-9 - 62584 - PHQ-9 Billing: Yes ([id number]) Assessment & Plan Assessment & Plan (1) Encounter for general adult medical examination with abnormal findings: Code(s): Z00.01 - Encounter for general adult medical examination with abnormal findings Category: Medical (2) Chronic pruritic rash in adult: Code(s): L29.89 - Other pruritus Category: Medical (3) Headache syndrome: Code(s): G44.89 - Other headache syndrome Category: Medical (4) Chronic GERD: Code(s): K21.9 - Gastro-esophageal reflux disease without esophagitis Category: Medical (5) Impaired fasting blood sugar: Code(s): R73.01 - Impaired fasting glucose Category: Medical (6) Obesity due to excess calories: Code(s): E66.09 - Other obesity due to excess calories Category: Medical Qualifiers: Body mass index: BMI 30.0-30.9 Obesity classification: adult class 1 (BMI 30 - 34.9) Serious obesity comorbidity presence: with serious comorbidity Qualified Code(s): E66.09 - Other obesity due to excess calories; Z68.30 - Body mass index [BMI] 30.0-30.9, adult (7) Lipid disorder: Code(s): E78.9 - Disorder of lipoprotein metabolism, unspecified Category: Medical (8) Hypertension, essential: Code(s): I10 - Essential (primary) hypertension Category: Medical Plan PE apt - The patient is a 44-year-old female presenting with a routine physical examination. - Osteoarthritis: The patient has osteoarthritis with noticeable crepitus in the knees, indicating joint degeneration. - Prediabetes: The patient has a history of impaired fasting glucose, indicating prediabetes. - Pruritus: The patient experiences generalized itching, occasionally requiring hydroxyzine PRN for relief. The itching is persistent and bothersome, with no clear trigger identified. decline to see derm - Preventative care: The patient underwent a mammogram and Pap smear last year as part of routine screening. Health Maintenance - Routine blood tests ordered, including fasting glucose to monitor prediabetes - Encouraged to maintain a food diary to identify potential triggers for pruritus - Breast exam and Pap thru [facility] Medications - Simvastatin 40 mg for hyperlipidemia - Propranolol 60 mg for headache management - Pantoprazole twice daily for gastroesophageal reflux disease - Hydroxyzine as needed for pruritus Employment - The patient is currently unemployed. Patient Instructions - Continue taking medications as prescribed. - Use hydroxyzine only as needed for itching. - Schedule follow-up in six months for routine check-up and lab results. - Maintain a food diary to help identify any potential triggers for itching. - steroid cream sent for pruritic rash on chest , use it at night for a week then take one week break Orders: Orders Comprehensive Questa. Panel Fast Today E66.09 - Other obesity due to excess calories, E78.9 - Disorder of lipoprotein metabolism, unspecified, G44.89 - Other headache syndrome, I10 - Essential (primary) hypertension, K21.9 - Gastro- esophageal reflux disease without esophagitis, R73.01 - Impaired fasting glucose, Z00.01 - Encounter for general adult medical examination with abnormal findings, Z68.30 - Body mass index [BMI] 30.0-30.9, adult Lipid Panel Today E66.09 - Other obesity due to excess calories, E78.9 - Disorder of lipoprotein metabolism, unspecified, G44.89 - Other headache syndrome, I10 - Essential (primary) hypertension, K21.9 - Gastro-esophageal reflux disease without esophagitis, R73.01 - Impaired fasting glucose, Z00.01 - Encounter for general adult medical examination with abnormal findings, Z68.30 - Body mass index [BMI] 30.0-30.9, adult Vitamin D 25-OH (D2 and D3) Today E66.09 - Other obesity due to excess calories, E78.9 - Disorder of lipoprotein metabolism, unspecified, G44.89 - Other headache syndrome, I10 - Essential (primary) hypertension, K21.9 - Gastro- esophageal reflux disease without esophagitis, R73.01 - Impaired fasting glucose, Z00.01 - Encounter for general adult medical examination with abnormal findings, Z68.30 - Body mass index [BMI] 30.0-30.9, adult Complete Blood Count Auto Diff Today E66.09 - Other obesity due to excess calories, E78.9 - Disorder of lipoprotein metabolism, unspecified, G44.89 - Other headache syndrome, I10 - Essential (primary) hypertension, K21.9 - Gastro- esophageal reflux disease without esophagitis, R73.01 - Impaired fasting glucose, Z00.01 - Encounter for general adult medical examination with abnormal findings, Z68.30 - Body mass index [BMI] 30.0-30.9, adult Medications: New triamcinolone acetonide 0.1% 1 appl topical DAILY 80 grams 0RF 30 days Discontinued lisinopril Discontinued Reason: Doctor's Order 5 mg PO DAILY 90 days 90 tabs 1RF hydroxyzine HCl Discontinued Reason: Doctor's Order 25 mg PO BEDTIME 90 days PRN 90 tabs 0RF itching
[2025-04-29 10:07] VITALS: BP 110/68; PULSE 70; RESP 15; TEMP 36.7; O2SAT 97; BMI 32.4
--- OUTSIDE RECORDS SUMMARY | 2025-04-29 10:14 | XMS_ITS | Clinical Summary ---
Author Organization [facility] ity Address [address] [place] [address] Care Team Providers Care Card Runner Name Role Phone Unavailable Primary Care Provider Unavailabl e Social History Tobacco Use Types Packs/Day Years Used Date Smoking Tobacco: Never Assessed Comments Unknown Sex and Gender Information Value Date Recorded Sex Assigned at Not on file Legal Sex Female 10:08 AM EST Gender Identity Not on file Sexual Orientation Not on file Plan of Treatment Health Maintenance Due Date Last Done Comments Breast Cancer Screening 1982 DTaP,Tdap,and Td Vaccines (1 - Tdap) 2001 Hepatitis B Vaccines (1 of 3 - 19+ 3-dose series) 2001 Cervical Cancer Screening: P ap Smear 2003 COVID-19 Vaccine (2023-2 5 season) 2024 Influenza Vaccine (Season Ended) 2025 HIB Vaccines Aged Out No longer eligi ble based on patient's age to complete this topic HPV Vaccines Aged Out No longer eligi ble based on patient's age to complete this topic Hepatitis A Vaccines Aged Out No long er eligible based on patient's age to complete this topic IPV Vaccines Aged Out No longer eligi ble based on patient's age to complete this topic MMR Vaccines Aged Out No longer eligi ble based on patient's age to complete this topic Meningococcal ACWY Vaccine Aged Out N o longer eligible based on patient's age to complete this topic Meningococcal B Vaccine Aged Out No l onger eligible based on patient's age to complete this topic Pneumococcal Vaccine: Pediat rics (0 to 5 Years) and At-Risk Patients (6 to 64 Years) Aged Out No longer eligible b ased on patient's age to complete this topic RSV Immunization Patients Un nubia 20 months Aged Out No longer eligible b ased on patient's age to complete this topic Varicella Vaccines Aged Out No longer eligible based on patient's age to complete this topic
== END 2025-04-29 10:24 | disposition home or self-care (01) ==
LOC: HO.HMCC 09:57
PROVIDERS: PCP Internal Medicine; Visit Provider Internal Medicine
DX: Z00.01 Encounter for general adult medical examination with abnormal findings (principal); L29.89 Other pruritus; E66.09 Other obesity due to excess calories; Z68.30 Body mass index [BMI] 30.0-30.9, adult; G44.89 Other headache syndrome; K21.9 Gastro-esophageal reflux disease without esophagitis; R73.01 Impaired fasting glucose; E78.9 Disorder of lipoprotein metabolism, unspecified; I10 Essential (primary) hypertension

== ENCOUNTER 2025-04-29 09:56 | Outpatient (REF) | payer OTHER, SELFPAY ==
[2025-04-29 13:50] LABS: MANUAL DIFF FLAG NO
[2025-04-29 13:57] LABS: Basophils Absolute Auto 0.1 X10*3/uL (0.0-0.2); Eosinophils Absolute Auto 0.2 X10*3/uL (0.0-0.4); Eosinophils Percent Auto 2.7 % (0-4); Hemoglobin 13.5 g/dl (12.0-16.0); Imm Gran Abs Auto 0.02 X10*3/uL (0.00-0.03); Imm Gran Pct Auto 0.2 % (0.0-0.4); Lymphocytes Absolute Auto 2.5 X10*3/uL (1.2-4.9); Lymphocytes Percent Auto 30.4 % (20-40); Mean Corpuscular HGB Conc 32.9 g/dl (31.0-35.0); Mean Corpuscular Hemoglobin 30.5 pg (27.0-33.0); Mean Corpuscular Volume 92.6 fL (80.0-98.0); Mean Platelet Volume 9.8 fL (9.4-12.3); Monocytes Absolute Auto 0.5 X10*3/uL (0.1-1.2); Monocytes Percent Auto 6.7 % (2-11); Neutrophils Absolute Auto 4.8 x10*3/uL (2.0-8.3); Platelet Count 364 X10*3/uL (160-400); Red Blood Count 4.43 X10*6/uL (4.20-5.50); Red Cell Distribution Width 12.1 % (11.0-16.0); White Blood Count 8.1 X10*3/uL (4.8-10.8)
[2025-04-29 14:28] LABS: Alanine Aminotransferase 21 U/L (0-31); Albumin Level 4.5 g/dL (3.5-5.0); Alkaline Phosphatase 68 U/L (39-117); Anion Gap 11 (12-20); Aspartate Amino Transferase 21 U/L (5-31); Bilirubin Total 0.4 mg/dL (0.0-1.0); Blood Urea Nitrogen 11 mg/dL (9-16); Calcium 9.5 mg/dL (8.4-10.2); Carbon Dioxide 25 mmol/L (22-29); Chloride 107 mmol/L (96-108); Cholesterol 174 mg/dL (<200); Estimated Glomerular Filt Rate > 60; Glucose Fasting 104 mg/dL (60-99); HDL Cholesterol 35 mg/dL (>40); LDL Cholesterol Calculated 107 mg/dL (<100); Potassium 4.2 mmol/L (3.3-5.1); Sodium 139 mmol/L (135-145); Triglycerides 160 mg/dL (<150)
[2025-05-03 17:37] LABS: Vitamin D 25-OH, D2 <4 ng/mL; Vitamin D 25-OH, D3 9 ng/mL; Vitamin D 25-OH, Total 9 ng/mL (30-100)
== END 2025-04-29 09:57 | disposition home or self-care (01) ==
LOC: HO.HMGCLDS 09:56
PROVIDERS: PCP Internal Medicine; Visit Provider Internal Medicine
DX: Z00.01 Encounter for general adult medical examination with abnormal findings (principal); K21.9 Gastro-esophageal reflux disease without esophagitis; R73.01 Impaired fasting glucose; E66.09 Other obesity due to excess calories; Z68.30 Body mass index [BMI] 30.0-30.9, adult; E78.9 Disorder of lipoprotein metabolism, unspecified; I10 Essential (primary) hypertension; G44.89 Other headache syndrome
CPT/HCPCS: 36415; 80053; 80061; 82306; 85025; 96127; 99212; 99396

== ENCOUNTER 2025-09-01 13:30 | Outpatient (AMB) | payer OTHER, SELFPAY ==
--- NOTE | 2025-09-01 13:31 | A.OFFVIS_ITS ---
Vital Signs 09/01/25 13:32 Height 5 ft 3 in Weight 174 lb BMI 30.8 BP 144/82 H Blood Pressure Location Rt brachial Position Sitting Pulse 86 Pulse Source Pulse Oximeter Pulse Oximetry (%) 97 Oxygen Delivery Method Room Air Intake Visit Reasons: follow up Intake Note: Patient follow up for chronic GERD. Patient cc: Pt denies any new GI concerns or sx at this time. Confirms she is still taking Rx'd PPI w/o complications. 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 TODAY'S VISIT Patient follow up for GERD and Constipation. Patient cc: Pt denies any new GI concerns or sx at this time. Heartburn symptoms are controlled. Ran out of PPI and had recurrent heartburn and pain in the chest Constipation is better and not taking any medications for a long time. PAST VISIT: Weighed 156 lbs 1-2 months. Gained wt since she eats more during the summer time GERD symptoms are controlled with medication - takes Pantoprazole once a day. Confirms she is still taking Rx'd PPI w/o complications. Takes a 2nd dose prn if she has symptoms < once a week. Having BM and does not need to use the pills Intentional weight loss of 35 lb over the past 3 years. Pt states she is feeling better. Occasional heartburn once in a while - not related to specific foods - once every 1-2 months Constipation is better and has a BM every day or 2nd day PAST VISIT: Pt is accompanied by her 5 year old daughter, Annette Denies chest pains, just burning sensation Most of the time this week - mostly at night. Taking Pantoprazole 40 mg twice a day Takes Linzess 145 mcg and has a BM daily to every 2nd day. Denies change in her diet. GERD and chest pains well controlled with medications. Has a BM daily to every other day. Notes intermittent episodes of chest pain - not often - can last 30 min to 1 hr. Constipation is much better , she is using the bathroom more frequently and GERD symptoms are better, too . Can have intermittent hard stools Having a BM every day with good evacuation. Denies any other GI symptoms. She is planning to go to [place] to spend the holidays with her in-laws. Patient called on #[phone]) Chest pains have improved since she started using medications. Intermittent chest pain radiating to the back - this week was bad. Constipation is a little bit better. Having a BM every 2 days - still has hard stools with straining ? Doing OK - Had some heartburn and not too bad. ? Complains of intermittent shortness of breath ? Feels full in the morning even before she has eaten - feels she has air inside. ? Noted some shortness of breath - attributes to weight gain for 25 lbs over the past 3 months. ? Taking Pantoprazole once daily. ? Has constipation for 6-7 months and was prescribed some medications - does not appear to be working. ? ? ? She was having a BM once a week ? Now every 2-3 days with passage of hard stools with . ? Can have heartburn symptoms every 2-3 weeks. ? Quitted smoking 3 months ago. ? Can can feel full in the stomach even if she had not eaten anything. ? Continues to have symptoms of heartburn though less than in the past. ? Takes Pantoprazole every morning and can have breakthrough symptoms three times a week. ? Can have chest pain sometimes. ? Takes longer to go to sleep due to heartburn. ? Keeps HOB elevated at night with pillows. ? Has dinner at 7 pm and goes to bed after 10 or 10;30 pm. ? Continues to have a Fb sensation in the throat.. ? Symptoms occur during the day and mostly at night. ? Unable to identify any precipitating foods. ? Has 3 cups of coffee daily ? Smokes 6-7 cigg/day x 19 yrs and is trying to cut down. Quitted on her own for a few months and then resumed smoking again. ? Denies regurgitation or dysphagia or chronic cough or hoarseness. ? Also has pain in the lower chest radiationg up to the throat and back. ? Chest pain is not as frequent as the heartburn and is not related to food or activity. ? Notes palpitations and denies nausea, vomiting, sweating or shortness of breath CHRONIC ILLNESSES: Gerd, headache syndrome, VERTIGO, DYSPEPSIA, OVER WEIGHT, LOW VITAMIN B12 LEVEL, LIPID DISORDER ? LABS IN [facility]: 01/07/19 normal CBC, Chem panel and LFTs ?IMAGING STUDIES:?07/2014 barium swallow was performed for evaluation of chest pain and was normal. ?ENDOSCOPIC STUDIES; 08/28 EGD SHOWED: ? LARYNX: Changes suggestive of LPRD ? ESOPHAGUS: Normal ? STOMACH: Gastritis. ? DUODENUM: Normal ? Plan: ? Await pathology results ? Continue present medications (Omeprazole at 20 mg PO once daily) ? Patient has an appointment on 09/15/19 in the GI Clinic with Yony Talley M.D ? BIOPSIES SHOWED: ? A. Small bowel, biopsies: Small bowel mucosa with no significant ? histopathology; no villous abnormality identified; no increase in ? intraepithelial lymphocytes. ? B. Stomach, biopsies: Mild chronic, inactive gastritis; no Helicobacter pylori organisms seen. ? C. Esophagus proximal, biopsy: Squamous epithelium within normal limits. [facility] Medical History Headache syndrome Chronic GERD Lipid disorder Surgical History History of esophagogastroduodenoscopy (EGD) Hx of colonoscopy History of section Family History Father No problems noted. Mother No problems noted. Maternal Grandmother Unknown family medical history Maternal Grandfather Unknown family medical history Paternal Grandmother Unknown family medical history Son No problems noted. Social History Household Members: Spouse and Children Housing: House Alcohol intake: never Patient Tobacco Use Status: Current everyday Tobacco user e-Cigarette/Vaping Use: Never Used service: No Current occupational status: unemployed Cognitive needs: No Hearing needs: No Vision needs: No Review of Systems Const All systems reviewed & are unremarkable except as noted in HPI and below Physical Exam Vital Signs: Last Vital Signs Pulse 86 09/01/25 13:32 BP 144/82 H 09/01/25 13:32 Pulse Ox 97 09/01/25 13:32 Oxygen Delivery Method Room Air 09/01/25 13:32 BMI result Body Mass Index 30.8 Const General: healthy appearing and no acute distress Nutritional Appearance: overweight Orientation/consciousness: patient oriented x3 Limitations: no limitations HEENT Head: Yes normal to inspection Ears: hearing grossly normal bilaterally Eyes Sclerae: sclerae normal Pupils: Equal, round and reactive pupils present Neck Neck: Yes normal visual inspection Chest Chest palpation & inspection: normal inspection of the chest Resp Effort & Inspection: normal respiratory effort Auscultation: clear to auscultation bilaterally Cardio Palpation: normal PMI Rate: regular rate Rhythm: regular rhythm Heart sounds: S1 normal heart sound present, S2 normal heart sound present and no murmurs GI Palpation (GI): Soft to palpation, nontender and No hepatosplenomegaly present Auscultation: normal bowel sounds Rectal Exam - Female: deferred Skin General skin exam: no rashes or lesions noted Neuro General: patient oriented x3, gait normal and moves all extremities Cranial nerves: Yes Equal, round and reactive pupils present Psych Appearance: grossly normal Mental Status: mental status grossly normal Assessment & Plan Assessment & Plan (1) Chronic GERD: Code(s): K21.9 - Gastro-esophageal reflux disease without esophagitis Category: Medical (2) Constipation by delayed colonic transit: Code(s): K59.01 - Slow transit constipation Category: Medical Plan 45 year-old female with headache syndrome, vertigo, dyspepsia, overweight, low vitamin B12 level, lipid disorder with symptoms of heartburn and atypical chest likely associated with esophageal spasm. FB sensation in the throat likely related to LPRD. Patient quit smoking 2 yrs ago and has noted significant improvement of her symptoms with pantoprazole with intermittent breakthrough symptoms once every 2- 3 weeks. Patient has gained 25 lb over the past 9 months since she is house bound due to COVID-19 pandemic.? She was able to loose some weight and has regained again She notes symptoms of abdominal fullness with and without eating which she attributes to weight gain. Pt was advised to increase pantoprazole to 40 mg twice daily for GERD during her previous visit and notes partial improvement in symptoms. Pt was started on Linzess for constipation and notes improvement in symptoms and has a BM daily with intermittent hard stools Patient was offered further evaluation with gastric emptying study. She would like to work on losing weight and she will contact my office if symptoms persist to schedule a gastric emptying test. 03/25/23 Pt complains of persisting burning - worse at night. She was advised to keep head of her bed elevated at night and take famotidine 20 mg at bedtime. She will be scheduled for an upper endoscopy with Torres (Off PPI) If symptoms resolve, she may elect to cancel the EGD. 10/30/23 Intentional weight loss of 35 lb over the past 3 years. Pt states she is feeling better. Occasional heartburn once in a while - not related to specific foods - once every 1-2 months Constipation is better and has a BM every day or 2nd day 04/22/24 GERD symptoms are controlled with medication - takes Pantoprazole once a day. Takes a 2nd dose prn if she has symptoms < once a week. Having BM and does not need to use the pills 09/01/25 Heartburn symptoms are controlled. Ran out of PPI and had recurrent heartburn and pain in the chest Constipation is better and not taking any medications for a long time. Follow-up appointment in 8 months Coding Level of Care Code Est Pt Level 4 (45294) Diagnoses Chronic GERD K21.9 Constipation by delayed colonic transit K59.01 Time Spent (min) 18
[2025-09-01 13:32] VITALS: BP 144/82; PULSE 86; O2SAT 97; BMI 30.8
--- OUTSIDE RECORDS SUMMARY | 2025-09-01 17:03 | XMS_ITS | Clinical Summary ---
Author Organization [facility] ity Address [address] [place] [address] Care Team Providers Care Vault Clerk Name Role Phone Unavailable Primary Care Provider [...] Cervical Cancer Screening: P ap Smear 2003 HPV Vaccines (1 - 3-dose SCD M series) 2009 Depression Screening 11/10/2024 COVID-19 Vaccine ( - 2023-2 5 season) 2025 Influenza Vaccine (#1) 2025 RSV Immunization Adult Patie nts (1 - 1-dose 75+ series) 2057 HIB Vaccines Aged Out No longer eligi [...] 5 Years) and At-Risk Patients (6 to 49 Years) Aged Out No longer eligible b ased on patient's age to complete this topic RSV Immunization Patients Un nubia 20 months Aged Out No longer eligible b ased on patient's age to complete this topic Varicella Vaccines Aged Out No longer eligible based on patient's age to complete this topic
== END 2025-09-01 14:11 | disposition home or self-care (01) ==
LOC: HO.HGI 13:30
PROVIDERS: PCP Internal Medicine; Visit Provider Internal Medicine Gastroenterology
DX: K21.9 Gastro-esophageal reflux disease without esophagitis (principal); K59.01 Slow transit constipation
CPT/HCPCS: 99214

== ENCOUNTER → 2025-09-01 13:30 | Outpatient (BNVA) | payer OTHER, SELFPAY | PROVIDERS: PCP Internal Medicine; Visit Provider Internal Medicine Gastroenterology | DX: K21.9 Gastro-esophageal reflux disease without esophagitis (principal); K59.01 Slow transit constipation | CPT/HCPCS: 99212 ==